=== PATIENT | female | born 1965 | race Caucasian/White ===

== ENCOUNTER 2019-11-23 12:25 | Outpatient (CLI) | payer BC, SELFPAY ==
--- NOTE | ~2019-11-23 | XR_ITS ---
EXAMINATION: XR lumbar spine 2-3V DATE: 11/23/2019 12:56 INDICATION: Low back pain TECHNIQUE: Anteroposterior and lateral views of the lumbar spine, and cone-down lateral view of the l umbosacral junction were obtained. COMPARISON: 07/03/2011 FINDINGS: The vertebral body heights and alignment are normal. There is moderate loss of intervertebr al disc space height at L5-S1. No fracture is identified. Small degenerative osteophytes project from the anterior endplates of multiple vertebral bodies. There is mild facet osteoarthritis at L5-S1. IMPRESSION: 1. Moderate lumbar spondylosis at L5-S1 without acute findings. Reviewed, dictated and finalized at location A. 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
== END 2019-11-23 12:26 | disposition home or self-care (01) ==
LOC: CHSIMG 12:27
PROVIDERS: PCP Internal Medicine; Visit Provider Nurse Practitioner Family
DX: M54.5 Low back pain (principal)
CPT/HCPCS: 72100

== ENCOUNTER 2020-09-04 07:43 | Outpatient (CLI) | payer BC, SELFPAY ==
[2020-09-04 09:01] LABS: Alanine Aminotransferase 66 U/L (14-59); Albumin Level 4.1 g/dL (3.4-5.0); Alkaline Phosphatase 114 U/L (46-116); Anion Gap 8 mmol/L (8-16); Aspartate Amino Transferase 34 U/L (15-37); Bilirubin,Total 0.4 mg/dL (0.00-1.00); Blood Urea Nitrogen 18 mg/dL (7-18); Calcium 9.3 mg/dL (8.5-10.1); Carbon Dioxide 31 mmol/L (21-32); Chloride 103 mmol/L (98-108); Cholesterol 184 mg/dL (0-200); Creatine Kinase 61 U/L (26-192); Estimated Glomerular Filt Rate > 60; Glucose 110 mg/dL (70-99); HDL Direct 56 mg/dL (40-60); LDL Cholesterol Calculated 107 mg/dL (<130); Osmolality Calculated 296 mOsm/kg (285-295); Potassium 4.5 mmol/L (3.5-5.1); Sodium 142 mmol/L (136-145); Total Protein 7.3 g/dL (6.4-8.2); Triglycerides 107 mg/dL (0-150)
== END 2020-09-04 07:44 | disposition home or self-care (01) ==
LOC: CHSLAB 07:46
PROVIDERS: PCP Internal Medicine; Visit Provider Internal Medicine
DX: Z00.00 Encounter for general adult medical examination without abnormal findings (principal)
CPT/HCPCS: 36415; 80053; 80061; 82550

== ENCOUNTER 2021-03-13 08:43 | Outpatient (CLI) | payer BC, SELFPAY ==
[2021-03-13 09:40] LABS: Hemoglobin A1C 5.7 % (<5.7)
[2021-03-13 09:52] LABS: Alanine Aminotransferase 44 U/L (14-59); Albumin Level 3.9 g/dL (3.4-5.0); Alkaline Phosphatase 116 U/L (46-116); Anion Gap 9 mmol/L (8-16); Aspartate Amino Transferase 25 U/L (15-37); Bilirubin,Total 0.4 mg/dL (0.00-1.00); Blood Urea Nitrogen 16 mg/dL (7-18); Carbon Dioxide 28 mmol/L (21-32); Chloride 104 mmol/L (98-108); Estimated Glomerular Filt Rate > 60; Glucose 103 mg/dL (70-99); Osmolality Calculated 293 mOsm/kg (285-295); Potassium 4.4 mmol/L (3.5-5.1); Sodium 141 mmol/L (136-145); Total Protein 6.9 g/dL (6.4-8.2)
== END 2021-03-13 08:44 | disposition home or self-care (01) ==
LOC: CHSLAB 08:44
PROVIDERS: PCP Internal Medicine; Visit Provider Internal Medicine
DX: R73.01 Impaired fasting glucose (principal)
CPT/HCPCS: 36415; 80053; 83036

== ENCOUNTER 2021-03-13 17:20 | Outpatient (CLI) | payer BC, SELFPAY ==
--- NOTE | ~2021-03-13 | XR_ITS ---
XR foot LT min 3V DATE: 03/13/2021 17:43 INDICATION: Heel pain for 2 months TECHNIQUE: 4 views COMPARISON: None FINDINGS: Mild distal Achilles tendon calcification. Slight plantar calcaneal enthesopathy. No fracture, dislocation, periosteal reaction or bone destruction. No erosive changes are noted. IMPRESSION: Mild distal Achilles tendon calcification Slight plantar calcaneal enthesopathy. Reviewed, dictated and finalized at location A.
== END 2021-03-13 17:21 | disposition home or self-care (01) ==
LOC: CHSIMG 17:22
PROVIDERS: PCP Internal Medicine; Visit Provider Internal Medicine
DX: M79.672 Pain in left foot (principal)
CPT/HCPCS: 73630

== ENCOUNTER 2021-10-19 08:04 | Outpatient (CLI) | payer BC, SELFPAY ==
[2021-10-19 08:59] LABS: Alanine Aminotransferase 43 U/L (14-59); Albumin Level 3.9 g/dL (3.4-5.0); Alkaline Phosphatase 117 U/L (46-116); Anion Gap 10 mmol/L (8-16); Aspartate Amino Transferase 18 U/L (15-37); Bilirubin,Total 0.4 mg/dL (0.00-1.00); Blood Urea Nitrogen 20 mg/dL (7-18); Calcium 9.2 mg/dL (8.5-10.1); Carbon Dioxide 28 mmol/L (21-32); Chloride 103 mmol/L (98-108); Cholesterol 185 mg/dL (0-200); Creatine Kinase 44 U/L (26-192); Estimated Glomerular Filt Rate > 60; Glucose 108 mg/dL (70-99); HDL Direct 59 mg/dL (40-60); LDL Cholesterol Calculated 105 mg/dL (<130); Osmolality Calculated 295 mOsm/kg (285-295); Potassium 4.5 mmol/L (3.5-5.1); Sodium 141 mmol/L (136-145); Total Protein 7.1 g/dL (6.4-8.2); Triglycerides 104 mg/dL (0-150)
== END 2021-10-19 08:05 | disposition home or self-care (01) ==
LOC: CHSLAB 08:05
PROVIDERS: PCP Internal Medicine; Visit Provider Internal Medicine
DX: Z00.00 Encounter for general adult medical examination without abnormal findings (principal); E78.2 Mixed hyperlipidemia
CPT/HCPCS: 36415; 80053; 80061; 82550

== ENCOUNTER 2022-02-27 15:28 | Outpatient (CLI) | payer BC, SELFPAY ==
--- NOTE | ~2022-02-27 | XR_ITS ---
XR chest 2V 02/27/2022 15:55 Indication: Shortness of breath with cough. History of Covid. Procedure: 2 view chest Comparison: Comparison to multiple prior studies sequentially, with oldest reviewed study dated 05/05/2015. Findings: There are surgical changes at the right lung apex. There is right upper lobe scarring. Hear t size normal. No focal air space disease, pulmonary edema, pleural effusion or suspected pneumothora x. No acute osseous abnormality. Impression: 1: No acute cardiopulmonary disease. Reviewed, dictated and finalized at location B. Impression: 1: No acute cardiopulmonary disease.
[2022-02-27 15:58] LABS: Basophils Absolute Auto 0.05 K/mm3 (0.00-0.10); Basophils Percent Auto 0.7 % (0.0-1.0); Eosinophils Absolute Auto 0.04 K/mm3 (0.02-0.50); Eosinophils Percent Auto 0.6 % (1.0-6.0); Hemoglobin 14.3 g/dL (12.0-15.0); Immature Granulocyte Absolute 0.02 K/mm3 (0.00-0.00); Immature Granulocyte Percent A 0.3 % (0.0-0.0); Lymphocytes Percent Auto 35.8 % (18.0-42.0); Mean Corpuscular HGB Conc 33.3 g/dL (32.0-36.0); Mean Corpuscular Hemoglobin 29.4 pg (27.0-31.0); Mean Corpuscular Volume 88.3 fL (78.0-102.0); Mean Platelet Volume 9.9 fl (9.2-11.8); Monocytes Absolute Auto 0.37 K/mm3 (0.10-0.90); Monocytes Percent Auto 5.3 % (2.0-11.0); Neutrophils Percent Auto 57.3 % (50.0-70.0); Platelet Count Result 261 K/mm3 (150-420); Red Blood Count 4.87 M/mm3 (4.20-5.40); Red Cell Distribution Width 11.9 % (11.6-14.4)
[2022-02-27 16:28] LABS: D Dimer 0.28 mg/L (0.19-0.50)
== END 2022-02-27 15:29 | disposition home or self-care (01) ==
LOC: CHSLAB 15:37
PROVIDERS: PCP Internal Medicine; Visit Provider Internal Medicine
DX: R06.02 Shortness of breath (principal); Z86.16 Personal history of COVID-19
CPT/HCPCS: 36415; 71046; 85025; 85380

== ENCOUNTER 2023-02-06 12:30 | Outpatient (CLI) | payer BC, SELFPAY ==
--- NOTE | 2023-02-09 10:49 | WPDNEUROLOGY ---
Neurology EEG Report General Information Date of Study: 03/08/23 TEST eeg DIAGNOSIS Confusion with memory loss CONDITION OF RECORDING drowsy and sleep EEG NUMBER [id number] CLINICAL HISTORY patient reports about 2 weeks ago she had an episode of amnesia. said she was talking and walking fine but cannot remember anything that happened for about 10 minutes. EEG DESCRIPTION Low-voltage 15 to 18 hertz per 2nd beta activity seen diffusely admixed with waxing and waning posterior alpha rhythm. Bilateral symmetrical sleep activity seen is mixture of beta theta activity without any evidence of paroxysmal discharge or asymmetry. Photic stimulation produced normal drive. Hyperventilation not done. Non paroxysmal. Nonfocal. Nonlateralizing. IMPRESSION Normal record during drowsiness and sleep without evidence of asymmetry or paroxysmal discharge.
== END 2023-02-06 12:31 | disposition home or self-care (01) ==
LOC: ANHNEURO 12:31
PROVIDERS: PCP Internal Medicine; Visit Provider Internal Medicine
DX: R41.0 Disorientation, unspecified (principal); R41.3 Other amnesia
CPT/HCPCS: 95816

== ENCOUNTER 2023-02-12 22:25 | Emergency (ER) | payer BC, SELFPAY ==
[2023-02-12 22:26] VITALS: BP 134/94; PULSE 85; RESP 16; TEMP 36.8; O2SAT 97
--- NOTE | 2023-02-12 22:39 | ED.GENADULT ---
HPI - General Adult General Chief complaint: Unspecified Stated complaint: Rash Source: patient and family Mode of arrival: ambulatory Limitations: no limitations History of Present Illness HPI narrative: this is a 57-year-old female that presents with a urticarial rash located on her face with no involvement of her eye currently no drainage there is no wheezing no nausea or vomiting no abdominal pain, occurred after she was cutting grass earlier today. Onset (ago): hour(s) Severity: mild Related Data Home Medications Medication Instructions Recorded Confirmed pravastatin 20 mg tablet 20 mg PO DAILY 02/12/23 02/12/23 Allergies Allergy/AdvReac Type Severity Reaction Status Date / Time No Known Allergies Allergy Unverified 02/12/23 22:33 Review of Systems Review of Systems: All systems reviewed & are unremarkable except as noted in HPI and below PMFSH Past Medical History Medical History Patient denies medical problems Exam Const: General: cooperative, healthy appearing and comfortable HENMT: Head: normal to inspection Ears: hearing grossly normal bilaterally Face/Nose/Sinus: Normal external nose present Face images: 1. urticarial lesion 2. urticarial lesion Mouth: Yes Normal oral and palatal mucosa present Throat: posterior oropharynx normal Eyes: General: appearance normal, both eyes and all related structures Visual Bettencourt: normal visual bettencourt by confrontation Neck: Neck: normal visual inspection, full ROM and no lymphadenopathy Chest: Chest palpation & inspection: normal inspection of the chest Resp: Effort & Inspection: normal respiratory effort Auscultation: clear to auscultation bilaterally Cardio: Jugular venous distension: no JVD Palpation: normal PMI Rate: regular rate Rhythm: regular rhythm GI: Inspection: normal to inspection Auscultation: normal bowel sounds Urinary Catheter: Urinary Catheter: patent and draining Skin: Rashes: rashes noted Course Course Emergency Course: patient received a dose of IM Depo-Medrol. Vital Signs Vital signs: Vital Signs Temperature 36.8 C 02/12/23 22:26 Pulse Rate 85 02/12/23 22:26 Respiratory Rate 16 02/12/23 22:26 Blood Pressure 134/94 H 02/12/23 22:26 Pulse Oximetry 97 02/12/23 22:26 Oxygen Delivery Room Air 02/12/23 22:26 Temperature 36.8 C 02/12/23 22:26 Pulse Rate 85 02/12/23 22:26 Respiratory Rate 16 02/12/23 22:26 Blood Pressure 134/94 H 02/12/23 22:26 Pulse Oximetry 97 02/12/23 22:26 Oxygen Delivery Room Air 02/12/23 22:26 Medical Decision Making Vital Signs Vital Signs: Vital Signs Temperature 36.8 C 02/12/23 22:26 Pulse Rate 85 02/12/23 22:26 Respiratory Rate 16 02/12/23 22:26 Blood Pressure 134/94 H 02/12/23 22:26 Pulse Oximetry 97 02/12/23 22:26 Oxygen Delivery Room Air 02/12/23 22:26 Temperature 36.8 C 02/12/23 22:26 Pulse Rate 85 02/12/23 22:26 Respiratory Rate 16 02/12/23 22:26 Blood Pressure 134/94 H 02/12/23 22:26 Pulse Oximetry 97 02/12/23 22:26 Oxygen Delivery Room Air 02/12/23 22:26 Critical Care Time Critical Care Time Critical Care Time: No Discharge Plan Discharge Clinical Impression: Contact dermatitis Patient Disposition: Home, Self-Care Condition: Stable Instructions: Antibiotic Form, Contact Dermatitis (ED) Additional Instructions: take medicine as prescribed and follow-up with primary care physician if symptoms persist or worsen. Prescriptions: New prednisone 20 mg tablet 20 mg PO DAILY Qty: 5 0RF No Action pravastatin 20 mg tablet 20 mg PO DAILY Follow-up/Referrals: Luis Angel Giron MD [Primary Care Provider] - Time of Disposition: 22:44
[2023-02-12] MEDS: methylPREDNISolone ACETATE 40 MG/ML VIAL 80 MG IM (22:44)
== END 2023-02-12 23:00 | disposition home or self-care (01) ==
LOC: CHSED 22:49
PROVIDERS: Emergency Provider Emergency Medicine; PCP Internal Medicine
DX: L25.9 Unspecified contact dermatitis, unspecified cause (principal)
CPT/HCPCS: 96372; 99283; J1030

== ENCOUNTER 2023-04-15 17:03 | Outpatient (CLI) | payer BC, SELFPAY ==
[2023-04-15 17:18] LABS: Basophils Absolute Auto 0.07 K/mm3 (0.00-0.10); Basophils Percent Auto 1.1 % (0.0-1.0); Eosinophils Absolute Auto 0.06 K/mm3 (0.02-0.50); Eosinophils Percent Auto 0.9 % (1.0-6.0); Hematocrit 41.9 % (35.0-49.0); Hemoglobin 14.1 g/dL (12.0-15.0); Immature Granulocyte Absolute 0.02 K/mm3 (0.00-0.00); Immature Granulocyte Percent A 0.3 % (0.0-0.0); Lymphocytes Absolute Auto 2.46 K/mm3 (1.10-4.50); Mean Corpuscular HGB Conc 33.7 g/dL (32.0-36.0); Mean Corpuscular Hemoglobin 30.5 pg (27.0-31.0); Mean Corpuscular Volume 90.7 fL (78.0-102.0); Mean Platelet Volume 9.8 fl (9.2-11.8); Monocytes Absolute Auto 0.51 K/mm3 (0.10-0.90); Monocytes Percent Auto 7.7 % (2.0-11.0); Neutrophils Absolute Auto 3.5 K/mm3 (1.7-7.2); Platelet Count Result 237 K/mm3 (150-420); Red Blood Count 4.62 M/mm3 (4.20-5.40); Red Cell Distribution Width 12.4 % (11.6-14.4); White Blood Count 6.7 K/mm3 (4.8-10.8)
[2023-04-15 17:50] LABS: Alanine Aminotransferase 46 U/L (14-59); Albumin Level 4.1 g/dL (3.4-5.0); Alkaline Phosphatase 97 U/L (46-116); Anion Gap 8 mmol/L (8-16); Aspartate Amino Transferase 39 U/L (15-37); Bilirubin,Total 0.4 mg/dL (0.00-1.00); Blood Urea Nitrogen 22 mg/dL (7-18); Calcium 9.2 mg/dL (8.5-10.1); Carbon Dioxide 31 mmol/L (21-32); Chloride 102 mmol/L (98-108); Creatine Kinase 66 U/L (26-192); Estimated Glomerular Filt Rate > 60; Glucose 88 mg/dL (70-99); Osmolality Calculated 294 mOsm/kg (285-295); Potassium 4.6 mmol/L (3.5-5.1); Sodium 141 mmol/L (136-145); Total Protein 7.2 g/dL (6.4-8.2)
== END 2023-04-15 17:04 | disposition home or self-care (01) ==
LOC: CHSLAB 17:07
PROVIDERS: PCP Internal Medicine; Visit Provider Internal Medicine
DX: R55 Syncope and collapse (principal)
CPT/HCPCS: 36415; 80053; 82550; 85025

== ENCOUNTER 2023-04-22 18:26 | Outpatient (CLI) | payer BC, SELFPAY ==
[2023-04-22 19:33] LABS: Alanine Aminotransferase 38 U/L (14-59); Albumin Level 4.1 g/dL (3.4-5.0); Alkaline Phosphatase 99 U/L (46-116); Anion Gap 8 mmol/L (8-16); Aspartate Amino Transferase 18 U/L (15-37); Bilirubin,Total 0.3 mg/dL (0.00-1.00); Blood Urea Nitrogen 31 mg/dL (7-18); Calcium 9.2 mg/dL (8.5-10.1); Carbon Dioxide 31 mmol/L (21-32); Chloride 102 mmol/L (98-108); Estimated Glomerular Filt Rate 56; Glucose 92 mg/dL (70-99); Osmolality Calculated 298 mOsm/kg (285-295); Potassium 4.2 mmol/L (3.5-5.1); Sodium 141 mmol/L (136-145)
== END 2023-04-22 18:27 | disposition home or self-care (01) ==
LOC: CHSLAB 18:28
PROVIDERS: PCP Internal Medicine; Visit Provider Internal Medicine
DX: E86.0 Dehydration (principal)
CPT/HCPCS: 36415; 80053

== ENCOUNTER 2023-05-07 17:46 | Outpatient (CLI) | payer BC, SELFPAY ==
[2023-05-07 18:59] LABS: Anion Gap 8 mmol/L (8-16); Blood Urea Nitrogen 21 mg/dL (7-18); Carbon Dioxide 30 mmol/L (21-32); Chloride 101 mmol/L (98-108); Estimated Glomerular Filt Rate > 60; Glucose 82 mg/dL (70-99); Osmolality Calculated 290 mOsm/kg (285-295); Potassium 4.3 mmol/L (3.5-5.1); Sodium 139 mmol/L (136-145)
== END 2023-05-07 17:47 | disposition home or self-care (01) ==
LOC: CHSLAB 17:48
PROVIDERS: PCP Internal Medicine; Visit Provider Internal Medicine
DX: E56.0 Deficiency of vitamin E (principal)
CPT/HCPCS: 36415; 80048

== ENCOUNTER 2023-07-18 08:49 | Outpatient (CLI) | payer BC, SELFPAY ==
[2023-07-18 09:45] LABS: Alanine Aminotransferase 55 U/L (14-59); Albumin Level 3.7 g/dL (3.4-5.0); Alkaline Phosphatase 118 U/L (46-116); Anion Gap 7 mmol/L (8-16); Aspartate Amino Transferase 22 U/L (15-37); Bilirubin,Total 0.4 mg/dL (0.00-1.00); Blood Urea Nitrogen 20 mg/dL (7-18); Carbon Dioxide 29 mmol/L (21-32); Chloride 105 mmol/L (98-108); Cholesterol 174 mg/dL (0-200); Creatine Kinase 45 U/L (26-192); Estimated Glomerular Filt Rate > 60; Glucose 108 mg/dL (70-99); HDL Direct 53 mg/dL (40-60); LDL Cholesterol Calculated 101 mg/dL (<130); Osmolality Calculated 295 mOsm/kg (285-295); Potassium 4.4 mmol/L (3.5-5.1); Sodium 141 mmol/L (136-145); Total Protein 7.2 g/dL (6.4-8.2); Triglycerides 98 mg/dL (0-150)
[2023-07-18 09:58] LABS: Appearance Urine Clear (Clear); Bilirubin Urine Negative (Negative); Blood Urine Negative (Negative); Color Urine Light Yellow (Yellow); Glucose Urine UA Negative (Negative); Ketones Urine Negative (Negative); Leukocyte Esterase Ur Negative (Negative); Nitrate Urine Negative (Negative); Protein Urine Negative (Negative); Urobilinogen Urine 0.2 mg/dL (0.2-1.0); pH Urine 6.5 (5.0-8.0)
[2023-07-18 10:05] LABS: Add Urine Microscopic? NO
[2023-07-18 10:12] LABS: Hemoglobin A1C 5.6 % (<5.7)
== END 2023-07-18 08:50 | disposition home or self-care (01) ==
LOC: CHSLAB 08:51
PROVIDERS: PCP Internal Medicine; Visit Provider Internal Medicine
DX: R73.01 Impaired fasting glucose (principal); E78.2 Mixed hyperlipidemia
CPT/HCPCS: 36415; 80053; 80061; 81003; 82550; 83036

== ENCOUNTER 2023-10-05 22:23 | Observation (INO) | payer BC, SELFPAY ==
--- NOTE | ~2023-10-05 | CT_ITS ---
EXAMINATION: CT brain wo con DATE: 10/06/2023 00:29 INDICATION: Headache. TECHNIQUE: Computed tomography (CT) of the head was performed without intravenous contrast. The mA wa s adjusted according to patient size. Iterative reconstruction technique was employed. The dose-lengt h product was 605.33 mGy-cm. COMPARISON: None FINDINGS: There is no intracranial hemorrhage, acute infarction, or abnormal intracranial mass lesion . The ventricles are normal in size. The orbits are normal. There is mild mucosal thickening in the p aranasal sinuses. The mastoid air cells are normal. IMPRESSION: 1. Normal brain. Reviewed, dictated and finalized at location E. CHECKER IMPRESSION: 1. Normal brain.
--- NOTE | ~2023-10-05 | XR_ITS ---
EXAMINATION: XR chest 1V portable DATE: 10/05/2023 22:43 INDICATION: Cough. Fever. TECHNIQUE: A single frontal view of the chest was obtained. COMPARISON: Chest 2 views 02/27/2022, chest CT 07/07/2011 FINDINGS: Staple lines overlie right lung. There is mild scarring in right mid and upper lung zones. No pleural effusion or pneumothorax. The heart size is normal. IMPRESSION: 1. Mild scarring in right mid and upper lung zones. Reviewed, dictated and finalized at location E. 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
[2023-10-05 22:27] VITALS: BP 140/94; PULSE 124; RESP 20; TEMP 38.8; O2SAT 94
--- NOTE | 2023-10-05 22:31 | ED.GENADULT ---
HPI - General Adult General Chief complaint: Upper Respiratory Infection Stated complaint: fever, sore throat Time Seen by Provider: 10/05/23 22:29 History of Present Illness HPI narrative: Sally is a 58F with a PMH of HLD that presented to the ED feeling ill. This morning she started feeling very tired and then progressed to have fevers, chills and body aches. It progressed to a severe headache with congestioin and cough as well as some nausea. No neck pain, dysuria or chest pain reported. Related Data Home Medications Medication Instructions Recorded Confirmed pravastatin 20 mg tablet 20 mg PO DAILY 02/12/23 10/06/23 alendronate 70 mg tablet 70 mg PO WEEKLY 10/06/23 10/06/23 Allergies Allergy/AdvReac Type Severity Reaction Status Date / Time No Known Allergies Allergy Unverified 10/05/23 22:26 Review of Systems Review of Systems: All systems reviewed & are unremarkable except as noted in HPI and below PMFSH Past Medical History Medical History Patient denies medical problems Social History Social History Smoking status: Never smoker Second hand tobacco smoke exposure: Yes Alcohol intake: never Substance use: never Substance use type: does not use Do You Feel Safe in your Home?: Yes Lack of Transportation: No Lack of Food: Never True Current Housing: I Have Housing Concerned About Future Housing: No Difficulty Paying Gas/Electric Bills: No Difficulty Paying for Meds: No Currently Unemployed: No Education: Associate Degree Difficulty w/ Childcare or Family Care: No Spiritual care concerns: No Exam Const: General: cooperative, well developed, alert, awake and Physically active Orientation/consciousness: oriented to person, oriented to place and oriented to time HENMT: Head: normal to inspection, normocephalic and atraumatic Ears: hearing grossly normal bilaterally and external ears normal Face/Nose/Sinus: Normal external nose present Other: rhinorrhea present Eyes: General: appearance normal, both eyes and all related structures Periorbital: periorbital findings normal Sclera: sclerae normal Pupils: Equal, round and reactive pupils present Neck: Neck: normal visual inspection Chest: Chest palpation & inspection: normal inspection of the chest Resp: Effort & Inspection: able to speak in complete sentences, labored and tachypneic (mild tachypnea ) Auscultation: clear to auscultation bilaterally Cardio: Jugular venous distension: no JVD Rate: regular rate and tachycardic Rhythm: regular rhythm GI: Inspection: normal to inspection GI Palp: Yes Soft to palpation Auscultation: normal bowel sounds Skin: General skin exam: normal color and no rashes or lesions noted Neuro: General: oriented to person, oriented to place and oriented to time Cranial nerves: Yes Equal, round and reactive pupils present Extrem: General: normal to inspection Course Course Emergency Course: Ordered labs, IV fluids, CXR, viral testing, EKG and Toradol. VBG and vitals c/w respiratory alkalosis. WBC elevated at 13.2, Chemistries show a mild ARGELIA with a Cr. of 1.17 (baseline 0.88), and CRP of 2.0 EKG showed sinus tachycardia with a rate of 105, normal axis and no ST elevation or depression UA was largely unremarkable CT Brain: CT head showed no acute intracranial hemorrhage, no midline shift or mass effect. the territorial perry-white matter differentiation is maintained throughout. Th ventricles and sulci are commensurate with age Viral testing negative. Vitals and labs concerning for SIRS but no known source. Will do broad treatment with meropenem and vancomycin. Larry contacted for transfer at [facility] for SIRS of unknown origin Spoke with Dr. Sorto that believed the the patient could be admitted to observation here. As vitals had improved she was admit
[2023-10-05] MEDS: KETOROLAC 30 MG/ML VIAL (*BKC) IV PUSH (22:44)
[2023-10-05] MEDS: SODIUM CHLORIDE 0.9% IV 1,000 ML 999 ML IV CONT (22:47)
[2023-10-05 22:57] LABS: HCO3 VBG 22.9 mEq/l (24.0-30.0); PO2 VBG 48.3 mmHg (35.0-45.0); pH VBG 7.51 (7.33-7.43)
[2023-10-05 23:00] LABS: Basophils Absolute Auto 0.05 K/mm3 (0.00-0.10); Basophils Percent Auto 0.4 % (0.0-1.0); Eosinophils Absolute Auto 0.02 K/mm3 (0.02-0.50); Eosinophils Percent Auto 0.2 % (1.0-6.0); Hematocrit 42.1 % (35.0-49.0); Hemoglobin 14.1 g/dL (12.0-15.0); Immature Granulocyte Absolute 0.04 K/mm3 (0.00-0.00); Immature Granulocyte Percent A 0.3 % (0.0-0.0); Lymphocytes Absolute Auto 1.09 K/mm3 (1.10-4.50); Lymphocytes Percent Auto 8.2 % (18.0-42.0); Mean Corpuscular HGB Conc 33.5 g/dL (32.0-36.0); Mean Corpuscular Hemoglobin 30.1 pg (27.0-31.0); Mean Platelet Volume 9.8 fl (9.2-11.8); Monocytes Absolute Auto 0.58 K/mm3 (0.10-0.90); Monocytes Percent Auto 4.4 % (2.0-11.0); Neutrophils Absolute Auto 11.4 K/mm3 (1.7-7.2); Neutrophils Percent Auto 86.5 % (50.0-70.0); Platelet Count Result 211 K/mm3 (150-420); Red Blood Count 4.68 M/mm3 (4.20-5.40); Red Cell Distribution Width 12.6 % (11.6-14.4); White Blood Count 13.2 K/mm3 (4.8-10.8)
[2023-10-05 23:03] LABS: PCO2 VBG 29.1 mmHg (42.0-48.0)
[2023-10-05 23:04] LABS: Device ROOM AIR
--- NOTE | 2023-10-05 23:15 | ECG_ITS ---
Measurements Intervals [place] Rate: 105 P: 35 [place]: 152 QRS: 1 QRSD: 98 T: 16 QT: 342 QTc: 452 Interpretive Statements SINUS TACHYCARDIA NO PREVIOUS ECG AVAILABLE FOR COMPARISON Electronically Signed On 10-06-2023 15:51:26 CLASSIFICATIONS OFFICER CC/CM by Kelsey Wing M.D.
[2023-10-05 23:20] LABS: Lactic Acid Reflex 1.8 mmol/L (0.4-2.0)
[2023-10-05 23:27] LABS: Alanine Aminotransferase 46 U/L (14-59); Alkaline Phosphatase 98 U/L (46-116); Anion Gap 9 mmol/L (8-16); Aspartate Amino Transferase 35 U/L (15-37); Bilirubin,Total 0.7 mg/dL (0.00-1.00); Blood Urea Nitrogen 22 mg/dL (7-18); Calcium 9.7 mg/dL (8.5-10.1); Carbon Dioxide 27 mmol/L (21-32); Chloride 99 mmol/L (98-108); Estimated Glomerular Filt Rate 48; Glucose 144 mg/dL (70-99); Osmolality Calculated 286 mOsm/kg (285-295); Potassium 3.9 mmol/L (3.5-5.1); Sodium 135 mmol/L (136-145); Total Protein 7.3 g/dL (6.4-8.2)
[2023-10-05 23:32] VITALS: PULSE 102
[2023-10-05 23:33] VITALS: BP 113/76; PULSE 102; PULSE 103; RESP 18; O2SAT 93; O2SAT 96
[2023-10-05 23:44] LABS: Appearance Urine Clear (Clear); Bilirubin Urine Negative (Negative); Blood Urine Trace-Intact (Negative); Color Urine Light Yellow (Yellow); Glucose Urine UA Negative (Negative); Ketones Urine Negative (Negative); Leukocyte Esterase Ur Negative LEU/UL (Negative); Nitrate Urine Negative (Negative); Protein Urine Negative (Negative); Specific Grav Ur <= 1.005 (1.010-1.020); Urobilinogen Urine 0.2 mg/dL (0.2-1.0); pH Urine 5.5 (5.0-8.0)
[2023-10-05 23:45] VITALS: PULSE 100; RESP 21; O2SAT 93
[2023-10-05 23:46] LABS: Influenza A QL RT-PCR Negative (Negative); Influenza B QL RT-PCR Negative (Negative); RSV RNA, RT-PCR Negative (Negative); SARS-CoV-2 RNA PCR Negative (Negative); Strep Group A RT-PCR NOT DETECTED (Negative)
[2023-10-05 23:49] LABS: Add Urine Microscopic? YES; Bacteria Urine None seen /hpf; RBC Urine 0-2 /hpf (0-2); Squamous Epithelial Cell Urine None seen /hpf (Few); WBC Urine 0-3 /hpf (0-3)
[2023-10-05] MEDS: MEROPENEM 1 GM/NS 100 ML 1 GM/100 ML BAG IVPB (23:57)
[2023-10-06] VITALS (21 sets, daily range): BP systolic 110–134; BP diastolic 67–79; PULSE 75–122; RESP 14–22; TEMP 36.8–38.2; O2SAT 93–96; BMI 30.4
[2023-10-06] MEDS: VANCOMYCIN 1,000 MG/NS 250 ML BAG 250 MG IVPB ×2 (00:50→01:53)
[2023-10-06] MEDS: SODIUM CHLORIDE 0.9% IV 1,000 ML 100 ML IV CONT ×2 (01:13→21:05)
[2023-10-06] MEDS: HYDROcodone/acetaminophen (*CRX) 5-325 MG TABLET 1 TAB PO ×2 (02:20→08:13)
--- NOTE | 2023-10-06 03:41 | ADMGEN ---
This patient, Sally Michaels, was admitted to 2nd Floor Room 210-2. Patient/family oriented to hospital policies and general routines including ID bracelet, bed and alarms, pain management, procedures, bathroom and other care routines, personal items, smoking policy, room service/diet, and visiting hours. Information on how to activate the Rapid Response Team has been discussed. Patient/Family are encouraged to report perceived risks to care and to ask questions if they do not understand what they are told or what they should do.
[2023-10-06] MEDS: ACETAMINOPHEN 325 MG TABLET 650 MG PO ×2 (04:22→18:32)
[2023-10-06 05:33] LABS: Basophils Absolute Auto 0.01 K/mm3 (0.00-0.10); Basophils Percent Auto 0.1 % (0.0-1.0); Eosinophils Absolute Auto 0.01 K/mm3 (0.02-0.50); Eosinophils Percent Auto 0.1 % (1.0-6.0); Hematocrit 37.3 % (35.0-49.0); Hemoglobin 12.4 g/dL (12.0-15.0); Immature Granulocyte Absolute 0.03 K/mm3 (0.00-0.00); Immature Granulocyte Percent A 0.3 % (0.0-0.0); Lymphocytes Absolute Auto 1.11 K/mm3 (1.10-4.50); Lymphocytes Percent Auto 10.4 % (18.0-42.0); Mean Corpuscular HGB Conc 33.2 g/dL (32.0-36.0); Mean Corpuscular Hemoglobin 29.5 pg (27.0-31.0); Mean Corpuscular Volume 88.6 fL (78.0-102.0); Mean Platelet Volume 9.5 fl (9.2-11.8); Monocytes Absolute Auto 0.28 K/mm3 (0.10-0.90); Monocytes Percent Auto 2.6 % (2.0-11.0); Neutrophils Absolute Auto 9.2 K/mm3 (1.7-7.2); Neutrophils Percent Auto 86.5 % (50.0-70.0); Platelet Count Result 173 K/mm3 (150-420); Red Blood Count 4.21 M/mm3 (4.20-5.40); Red Cell Distribution Width 12.6 % (11.6-14.4); White Blood Count 10.6 K/mm3 (4.8-10.8)
[2023-10-06 06:00] LABS: Anion Gap 7 mmol/L (8-16); Blood Urea Nitrogen 16 mg/dL (7-18); Calcium 8.6 mg/dL (8.5-10.1); Carbon Dioxide 29 mmol/L (21-32); Chloride 104 mmol/L (98-108); Estimated CRCL calculation 56 ml/min; Estimated Glomerular Filt Rate > 60; Glucose 129 mg/dL (70-99); Osmolality Calculated 293 mOsm/kg (285-295); Potassium 3.5 mmol/L (3.5-5.1); Sodium 140 mmol/L (136-145)
--- NOTE | 2023-10-06 07:16 | PC.NURSE ---
Patient was admitted to the floor shortly after 0200. She was accompanied by her live-in boyfriend. Patient had a fever of 102 when she came to the ED. By the time she arrived to this floor, patient had been given meriperem, vancomyacin, and 2 L of normal saline. Her temperature was down to normal at arrival. Patient's HR had been elevated when she arrived to the ED, but again, was down to normal limits. Patient c/o a headache with pain of 7/10. However, she did not want to take morphine (pain meds for severe pain), but did want the [place]. That medication, given at 0222 did help relieve headache somewhat, but it remained. Patient's temperature went up somewhat to 100.3. She was given Tylenol to help combat the temp. That was given at 0430. Patient's temperature stayed about the same, at 100.1. Patient was able to sleep, and stated that the headache is better, but again is not gone. Patient is able to ambulate to the toilet and back, with stand by assist. Patient has the IV pole to manipulate. Patient urinated frequently (5 trips total).
[2023-10-06] MEDS: ENOXAPARIN 40 MG/0.4 ML SYRINGE SUB-Q (09:12)
[2023-10-06] MEDS: PRAVASTATIN SODIUM 20 MG TABLET PO (09:13)
[2023-10-06] MEDS: MEROPENEM 1 GM/NS 100 ML 1 GM/100 ML BAG IVPB ×2 (09:13→20:31)
--- NOTE | 2023-10-06 09:14 | PM.IMHP ---
H&P: HPI History of Present Illness Date/Time: 10/06/23 09:14 Chief Complaint: Fever of unknown origin Narrative: This is a previously healthy 58-year-old female patient who is admitted to the hospital for fever of unknown origin. She reports that when she woke up yesterday she had bit of a scratchy throat that progressed throughout the day to include symptoms of fatigue severe chills and fever 102. Patient came to the emergency department overnight due to progression of symptoms. She denies any difficulty breathing just complains of a headache around her ethmoid sinus. Patient had full workup in the emergency department without obvious findings of infection. ED provider was thinking that patient might have influenza that just did not show positive on test results. However, due to how the patient appeared and the repeated EF her symptoms he initiated vancomycin and meropenem. For now we will continue this treatment. Blood cultures are pending. Patient denies stiff neck or pain with flexion and extension of the neck. She is tired because she has been up for over 24 hours but she is not obtunded or altered level of consciousness. We will continue IV fluids and antibiotics. If patient condition worsens or she has altered mental status we would pursue transfer. ED provider initially spoke to hospitalist at [facility] for transfer which was declined as patient appears to be capable of being cared for at critical access hospital. At this time I agree with that assessment but would have low threshold for transfer if patient condition worsens despite treatment. Review of Systems Review of Systems: fever, chills, ethmoid sinus pain, facial erythema All systems reviewed & are unremarkable except as noted in HPI and below PMFSH Past Medical History Medical History Patient denies medical problems Social History Social History Smoking status: Never smoker Second hand tobacco smoke exposure: Yes Alcohol intake: never Substance use: never Substance use type: does not use Do You Feel Safe in your Home?: Yes Lack of Transportation: No Lack of Food: Never True Current Housing: I Have Housing Concerned About Future Housing: No Difficulty Paying Gas/Electric Bills: No Difficulty Paying for Meds: No Currently Unemployed: No Education: Associate Degree Difficulty w/ Childcare or Family Care: No Spiritual care concerns: No Meds Home Medications and Allergies Home Medications Medication Instructions Recorded Confirmed Type pravastatin 20 mg tablet 20 mg PO DAILY 02/12/23 10/06/23 History alendronate 70 mg tablet 70 mg PO WEEKLY 10/06/23 10/06/23 History Allergies Allergy/AdvReac Type Severity Reaction Status Date / Time No Known Allergies Allergy Unverified 10/05/23 22:26 Vital Signs Vital Signs - 24 hr 10/05/23 22:27 10/05/23 22:27 10/05/23 23:32 Temperature 38.8 C H Pulse Rate 124 H 102 H Respiratory Rate 20 Blood Pressure 140/94 H Pulse Oximetry 94 Oxygen Delivery Room Air Room Air 10/05/23 23:33 10/05/23 23:33 10/05/23 23:45 Temperature Pulse Rate 103 H 102 H 100 Respiratory Rate 18 21 H Blood Pressure 113/76 Pulse Oximetry 96 93 93 Oxygen Delivery 10/06/23 00:00 10/06/23 00:01 10/06/23 00:29 Temperature 37.7 C H Pulse Rate 122 H 119 H 94 Respiratory Rate 22 H 19 18 Blood Pressure 130/74 Pulse Oximetry 96 96 Oxygen Delivery 10/06/23 00:22 10/06/23 00:30 10/06/23 00:45 Temperature Pulse Rate 107 H 101 H 97 Respiratory Rate 16 16 Blood Pressure Pulse Oximetry 95 93 94 Oxygen Delivery 10/06/23 00:50 10/06/23 00:51 10/06/23 01:00 Temperature Pulse Rate 99 100 94 Respiratory Rate 19 19 19 Blood Pressure 122/73 110/67 Pulse Oximetry 95 94 96 Oxygen Delivery 10/06/23 01:01
[2023-10-06] MEDS: IBUPROFEN 400 MG TABLET PO ×2 (10:26→11:00)
[2023-10-06 19:34] LABS: MRSA (PCR) NOT DETECTED (NOT DETECTE)
[2023-10-06] MEDS: VANCOMYCIN 1,500 MG/NS 500 ML 1,500 MG/500 ML BAG 250 MG IVPB (21:56)
[2023-10-07] VITALS: BP 116/83; PULSE 82; RESP 16; TEMP 36.4; O2SAT 98
[2023-10-07] MEDS: ACETAMINOPHEN 325 MG TABLET 650 MG PO (02:10)
[2023-10-07 05:27] LABS: Basophils Absolute Auto 0.04 K/mm3 (0.00-0.10); Basophils Percent Auto 0.4 % (0.0-1.0); Eosinophils Absolute Auto 0.15 K/mm3 (0.02-0.50); Eosinophils Percent Auto 1.7 % (1.0-6.0); Hematocrit 38.5 % (35.0-49.0); Hemoglobin 12.6 g/dL (12.0-15.0); Immature Granulocyte Absolute 0.03 K/mm3 (0.00-0.00); Immature Granulocyte Percent A 0.3 % (0.0-0.0); Lymphocytes Absolute Auto 2.01 K/mm3 (1.10-4.50); Lymphocytes Percent Auto 22.2 % (18.0-42.0); Mean Corpuscular HGB Conc 32.7 g/dL (32.0-36.0); Mean Corpuscular Hemoglobin 29.2 pg (27.0-31.0); Mean Corpuscular Volume 89.3 fL (78.0-102.0); Mean Platelet Volume 9.8 fl (9.2-11.8); Monocytes Absolute Auto 0.62 K/mm3 (0.10-0.90); Monocytes Percent Auto 6.8 % (2.0-11.0); Neutrophils Absolute Auto 6.2 K/mm3 (1.7-7.2); Neutrophils Percent Auto 68.6 % (50.0-70.0); Platelet Count Result 177 K/mm3 (150-420); Red Blood Count 4.31 M/mm3 (4.20-5.40); Red Cell Distribution Width 12.7 % (11.6-14.4); White Blood Count 9.1 K/mm3 (4.8-10.8)
[2023-10-07 05:49] LABS: Alanine Aminotransferase 90 U/L (14-59); Albumin Level 3.3 g/dL (3.4-5.0); Alkaline Phosphatase 97 U/L (46-116); Anion Gap 7 mmol/L (8-16); Aspartate Amino Transferase 55 U/L (15-37); Bilirubin,Total 0.6 mg/dL (0.00-1.00); Blood Urea Nitrogen 7 mg/dL (7-18); Calcium 8.8 mg/dL (8.5-10.1); Carbon Dioxide 28 mmol/L (21-32); Chloride 104 mmol/L (98-108); Estimated CRCL calculation 63 ml/min; Estimated Glomerular Filt Rate > 60; Glucose 107 mg/dL (70-99); Magnesium 1.9 mg/dL (1.8-2.4); Osmolality Calculated 286 mOsm/kg (285-295); Potassium 3.8 mmol/L (3.5-5.1); Sodium 139 mmol/L (136-145); Total Protein 6.5 g/dL (6.4-8.2)
[2023-10-07 07:29] LABS: SARS-CoV-2 RNA PCR Negative (Negative)
[2023-10-07 07:33] LABS: Influenza A QL RT-PCR Negative (Negative); Influenza B QL RT-PCR Negative (Negative)
[2023-10-07 08:00] VITALS: BP 127/83; PULSE 85; RESP 16; TEMP 35.8; O2SAT 96
[2023-10-07] MEDS: MEROPENEM 1 GM/NS 100 ML 1 GM/100 ML BAG IVPB (08:59)
[2023-10-07] MEDS: PRAVASTATIN SODIUM 20 MG TABLET PO (08:59)
[2023-10-07] MEDS: ENOXAPARIN 40 MG/0.4 ML SYRINGE SUB-Q (08:59)
--- NOTE | 2023-10-07 09:05 | PM.DS ---
DS: Admitting Diagnosis Discharge Date 10/07/2023 Admitting Diagnosis fever of unknown origin, sirs, ARGELIA DS: Discharge Diagnosis Discharge Diagnosis (1) Fever of unknown origin: Code(s): R50.9 - Fever, unspecified Status: Acute (2) SIRS (systemic inflammatory response syndrome): Code(s): R65.10 - Systemic inflammatory response syndrome (SIRS) of non-infectious origin without acute organ dysfunction Status: Acute (3) ARGELIA (acute kidney injury): Code(s): N17.9 - Acute kidney failure, unspecified Status: Acute DS: Summary Hospital Course Reason for hospitalization: Fever of unknown origin Hospital Course: This is a 58-year-old female patient admitted to the hospital on IV antibiotics for fever of unknown origin meetings SIRS criteria. Urinalysis unremarkable, chest x-ray unremarkable, no skin source of infection identified. Symptoms appear to be possibly viral in nature consisting of sinusitis, fever, malaise, drowsiness without concerning signs suggestive of meningitis. Patient was receiving minimal improvement in body temperature with Tylenol so we switched to ibuprofen which did help break the fever. We repeated flu and COVID testing thinking it was possible patient had flu but a false negative test. Blood cultures are pending. Because source not clearly identified, we will treat with 7 days of Augment and return precautions. Discussed symptomatic care for sinusitis. Discussed return precautions. Status at Discharge Cognitive/behavioral status at discharge: awake alert oriented pleasant Functional status at discharge: independent ambulation Overall status at discharge: patient is progressing back to baseline Time Spent with Patient Time attestation: Total time spent providing and/or coordinating discharge services: 35 minutes Time spent: Greater than 30 minutes Exam Narrative: GENERAL: well-appearing, well-nourished, and in no acute distress. HEAD: Normocephalic, atraumatic. ENT:? Mucous membranes moist. mild pain palpation of the ethmoid sinus CHEST: Clear to auscultation.? No respiratory distress. HEART: Regular rate and rhythm. ? Normal peripheral pulses. ABDOMEN: Soft, nontender, nondistended. EXTREMITIES: Normal range of motion. No peripheral edema. SKIN: Warm dry normal color NEURO: Alert and oriented x3, full range of motion of all extremities, negative Kernig's and Brudzinski, ambulatory with steady gait PSYCH: Normal mood and affect DS: Data Data Completed and Pending Completed studies during hospitalization: chest x-ray, head CT Labs on day of discharge: Labs from last 24 hours 10/07/23 10/07/23 10/06/23 05:18 05:00 02:16 WBC 9.1 RBC 4.31 Hgb 12.6 Hct 38.5 MCV 89.3 MCH 29.2 MCHC 32.7 RDW 12.7 Plt Count 177 MPV 9.8 Immature Gran % (Auto) 0.3 H Neut % (Auto) 68.6 Lymph % (Auto) 22.2 [place] % (Auto) 6.8 Eos % (Auto) 1.7 Baso % (Auto) 0.4 Lymph # (Auto) 2.01 [place] # (Auto) 0.62 Eos # (Auto) 0.15 Baso # (Auto) 0.04 Abs Immat Gran (auto) 0.03 H Absolute Neuts (auto) 6.2 Absolute Nucleated RBC 0.00 Nucleated RBC % 0.0 Sodium 139 Potassium 3.8 Chloride 104 Carbon Dioxide 28 Anion Gap 7 L BUN 7 Creatinine 0.81 Estim Creat Clear Calc 63 Estimated GFR > 60 Glucose 107 H Calculated Osmolality 286 Calcium 8.8 Magnesium 1.9 Total Bilirubin 0.6 AST 55 H ALT 90 H Alkaline Phosphatase 97 Total Protein 6.5 Albumin 3.3 L Nasal MRSA (PCR) Not detected Influenza A (RT-PCR) Negative Influenza B (RT-PCR) Negative SARS-CoV-2 RNA (RT-PCR) Negative Discharge Plan Discharge Attending physician on discharge: Chetan Potter Consulting providers: Sven Saldivar Discharging Clinician: Sven Saldivar Anticipated Discharge Date/Time: 10/07/23 09:40 Patient Disposition: Home, Self-Care
--- NOTE | 2023-10-07 10:55 | PC.NURSE ---
Discharge instructions reviewed with patient and significant other. All questions answered. Pt escorted via wheelchair and assisted into private vehicle.
--- NOTE | 2023-10-08 09:17 | PC.NURSE ---
Discharge call back completed, doing ok, weak, no fever, did receive dc instructions and no questions or concerns, care was good, everyone was helpful and very nice
== END 2023-10-07 10:55 | disposition home or self-care (01) ==
LOC: CHSED 10-06 00:20 → CHS2ND 10-06 01:25
PROVIDERS: Nurse Practitioner; Admitting Provider Internal Medicine; Emergency Provider Family Medicine; Visit Provider Internal Medicine
DX: R50.9 Fever, unspecified (principal); R65.10 Systemic inflammatory response syndrome (SIRS) of non-infectious origin without acute organ dysfunction; N17.9 Acute kidney failure, unspecified; J98.4 Other disorders of lung; R51.9 Headache, unspecified; I10 Essential (primary) hypertension; Z20.822 Contact with and (suspected) exposure to COVID-19; E78.5 Hyperlipidemia, unspecified; Z79.899 Other long term (current) drug therapy
CPT/HCPCS: 36415; 70450; 71045; 80048; 80053; 81001; 82803; 83605; 83735; 85025; 86140; 87040; 87636; 87637; 87641; 87651; 93005; 96361; 96365; 96366; 96367; 96372; 96375; 99285; A9270; G0378; J1650; J1885; J2185; J3370; J7030

== ENCOUNTER 2024-05-23 16:08 | Outpatient (CLI) | payer BC, SELFPAY ==
--- NOTE | ~2024-05-23 | XR_ITS ---
XR_[id number]_CR Ordering provider: Luis Angel Giron MD History: . RIGHT SIDE NECK PAIN X 2 MONTHS/NO TRAUMA . Comparison: August 03, 2019 FINDINGS: VERTEBRAL BODIES: Normal height and alignment. No visible fracture or subluxation. The dens is intact . DISK SPACES: Slight narrowing of the disc C4-C5, C5-C6. Facet joint disease at the level of C2-C3 and C3-C4 and also at the level of C7-T1. PARASPINOUS SOFT TISSUES: No prevertebral soft tissue swelling. IMPRESSION: No acute osseous abnormality cervical spine. Reviewed, dictated and finalized at location A.
== END 2024-05-23 16:09 | disposition home or self-care (01) ==
LOC: CHSIMG 16:10
PROVIDERS: PCP Internal Medicine; Visit Provider Internal Medicine
DX: M54.2 Cervicalgia (principal)
CPT/HCPCS: 72040

== ENCOUNTER 2024-10-10 00:09 | Day surgery (SDC) | payer BC, SELFPAY ==
--- NOTE | 2024-10-10 08:56 | P.PNAN_ITS ---
Anes - Initial Pre Proc Eval Procedure: Operation Date: 10/10/24 11:00 Proposed Procedures p Screening Colonoscopy - Obie Cristobal DO Date/Time: 10/10/24 08:56 Surgeon: Obie Cristobal DO Pre Op Diagnosis: Screening for malignant neoplasm of colon Patient Data Age: 59 Gender: F Height: 1.57 m Weight: 74.5 kg Allergies Allergy/AdvReac Type Severity Reaction Status Date / Time No Known Allergies Allergy Verified 10/10/24 09:35 Home Medications ?Medication ?Instructions ?Recorded ?Confirmed ?Type pravastatin 20 mg tablet 20 mg PO DAILY 02/12/23 10/10/24 History alendronate 70 mg tablet 70 mg PO WEEKLY 10/06/23 10/03/24 History acetaminophen 325 mg tablet 650 mg (2 x 325 mg) PO Q4H PRN 10/07/23 10/03/24 Rx Mild Pain (1-3) Or Fever #0 tabs fluticasone propionate 50 2 spray intranasal BID #16 grams 10/07/23 10/10/24 Rx mcg/actuation nasal spray,suspension ibuprofen 400 mg tablet 400 mg PO Q6H PRN fever--second 10/07/23 10/10/24 Rx line #20 tabs pantoprazole 40 mg tablet,delayed 40 mg PO Q12H 10/03/24 10/10/24 History release Patient hx anesthesia problems: none Family hx anesthesia problems: none Results Review: All pre-operative results and documents have been reviewed as part of the pre- operative evaluation. [facility] Past Medical History Medical History (Updated 10/10/24 @ 08:56 by Efra Calvo DO) GERD (gastroesophageal reflux disease) Hyperlipidemia Patient denies medical problems Social History Social History Smoking status: Never smoker Second hand tobacco smoke exposure: Yes Alcohol intake: never Alcohol use details: Rarely Substance use: never Substance use type: does not use Do You Feel Safe in your Home?: Yes Lack of Transportation: No Lack of Food: Never True Current Housing: I Have Housing Concerned About Future Housing: No Difficulty Paying Gas/Electric Bills: No Difficulty Paying for Meds: No Currently Unemployed: No Education: Associate Degree Difficulty w/ Childcare or Family Care: No Additional living arrangements comments: with so Spiritual care concerns: No Anes - Eval Final PreProcedure Day of Procedure 10/10/24 08:56 Patient weight: overweight Heart: regular rate and rhythm Lungs: clear to auscultation Airway: Mallampati scale class II Neurological: alert and oriented Last oral intake: >/= 8 hours ASA classification: II Emergent: no Anesthetic plan: proceed Anesthesia type and monitoring: general GIVS and standard monitoring Results Review: All pre-operative results and documents have been reviewed as part of the pre- operative evaluation. Informed Consent: The patient's anesthetic plan and its attendant risks and benefits were discussed with the patient/family/POA. Questions were solicited and answers provided to the satisfaction of the patient/family/POA.
[2024-10-10 09:34] VITALS: BP 114/90; PULSE 98; RESP 16; TEMP 36.2; O2SAT 98
[2024-10-10] MEDS: LACTATED RINGERS 1,000 ML 150 ML IV CONT (09:46)
--- NOTE | 2024-10-10 10:38 | P.HP_ITS ---
H&P: HPI History of Present Illness Date/Time: 10/10/24 10:38 Chief Complaint: screening for colorectal cancer Narrative: this is a 59-year-old woman who presents for colonoscopy. Her last colonoscopy was 10 years ago and was normal. She denies any hematochezia or melena. She denies any family history of colon cancer. Review of Systems Review of Systems: All systems reviewed & are unremarkable except as noted in HPI and below Constitutional: Constitutional: Denies chills, Denies fever(s), Denies headache(s) and Denies weight loss Eyes: Eyes: Denies change in vision ENT: Denies dizziness, Denies headache(s), Denies neck mass and Denies throat swelling Cardiovascular: Cardiovascular: Denies chest pain, Denies lightheadedness and Denies dyspnea Respiratory: Respiratory: Denies cough, Denies dyspnea and Denies wheezing Gastrointestinal: Gastrointestinal: Denies abdominal pain, Denies change in bowel habits, Denies nausea and Denies vomiting Genitourinary: Genitourinary: Denies hematuria and Denies dysuria Musculoskeletal: Musculoskeletal: Reports as per HPI Integumentary/Breasts: Skin/Breast: Reports as per HPI Neurologic: Denies dizziness and Denies headache(s) Allergic/Immunologic: Allergic/Immunologic: Denies throat swelling and Denies wheezing [facility] Past Medical History Medical History (Updated 10/10/24 @ 10:39 by Obie Cristobal DO) GERD (gastroesophageal reflux disease) Hyperlipidemia Patient denies medical problems Social History Social History Smoking status: Never smoker Second hand tobacco smoke exposure: Yes Alcohol intake: never Alcohol use details: Rarely Substance use: never Substance use type: does not use Do You Feel Safe in your Home?: Yes Lack of Transportation: No Lack of Food: Never True Current Housing: I Have Housing Concerned About Future Housing: No Difficulty Paying Gas/Electric Bills: No Difficulty Paying for Meds: No Currently Unemployed: No Education: Associate Degree Difficulty w/ Childcare or Family Care: No Additional living arrangements comments: with so Spiritual care concerns: No Meds Home Medications and Allergies Home Medications ?Medication ?Instructions ?Recorded ?Confirmed ?Type pravastatin 20 mg tablet 20 mg PO DAILY 02/12/23 10/10/24 History alendronate 70 mg tablet 70 mg PO WEEKLY 10/06/23 10/03/24 History acetaminophen 325 mg tablet 650 mg (2 x 325 mg) PO Q4H PRN 10/07/23 10/03/24 Rx Mild Pain (1-3) Or Fever #0 tabs fluticasone propionate 50 2 spray intranasal BID #16 grams 10/07/23 10/10/24 Rx mcg/actuation nasal spray,suspension ibuprofen 400 mg tablet 400 mg PO Q6H PRN fever--second 10/07/23 10/10/24 Rx line #20 tabs pantoprazole 40 mg tablet,delayed 40 mg PO Q12H 10/03/24 10/10/24 History release Allergies Allergy/AdvReac Type Severity Reaction Status Date / Time No Known Allergies Allergy Verified 10/10/24 09:35 Vital Signs Vital Signs - 24 hr 10/10/24 09:34 Temperature 97.1 F L Pulse Rate 98 Respiratory Rate 16 Blood Pressure 114/90 Pulse Oximetry 98 Oxygen Delivery Room Air Exam Const: General: no acute distress and alert Orientation/consciousness: patient oriented x3 HENMT: Head: normocephalic and atraumatic Ears: hearing grossly normal bilaterally Face/Nose/Sinus: Normal nares present Mouth: Yes Normal oral and palatal mucosa present Eyes: Periorbital: periorbital findings normal Sclera: sclerae normal EOM: EOMs intact bilaterally Neck: Neck: normal visual inspection, no lymphadenopathy and trachea midline Chest: Chest palpation & inspection: normal inspection of the chest Resp: Effort & Inspection: normal respiratory effort Auscultation: clear to auscultation bilaterally Cardio: Jugular venous distension: no JVD Rate: regular rate Rhythm: regular rhythm Heart sounds: S1 normal heart sound present and S2 normal heart sound present Peripheral pulses: Peripheral pulses 2+ throughout GI: Inspection: normal to inspection GI Palp: Yes Soft to palpation, No Tenderness to palpation present (GI), No Guarding due to palpation present (GI) and No Rebound tenderness present Percussion: Yes normal to percussion Auscultation: normal bowel sounds : General: Yes no CVA tenderness Back/Spine/Pelvis: Back: no CVA tenderness Neuro: General: patient oriented x3, no focal motor deficits and CN's II-XI intact bilaterally Cognition (Neuro): normal cognition Speech: normal speech Motor exam (neuro): 5/5 motor strength present throughout Extrem: General: capillary refill normal and no clubbing, cyanosis or edema Assessment and Plan Assessment and plan (1) Screening for colorectal cancer: Code(s): Z12.11 - Encounter for screening for malignant neoplasm of colon; Z12.12 - Encounter for screening for malignant neoplasm of rectum Status: Acute Assessment and Plan: I have recommended colonoscopy. I have discussed the procedure, risks, benefits, and alternatives. Questions were answered. Patient is agreeable to proceed.
[2024-10-10 11:02] VITALS: BP 107/71; PULSE 99; RESP 16; O2SAT 98
[2024-10-10 11:12] VITALS: BP 117/75; PULSE 72; RESP 16; O2SAT 100
[2024-10-10 11:22] VITALS: BP 123/69; PULSE 69; RESP 16; O2SAT 100
== END 2024-10-10 11:34 | disposition home or self-care (01) ==
PROVIDERS: PCP Internal Medicine; Visit Provider Surgery
PROC: 0DJD8ZZ Inspection of Lower Intestinal Tract, Via Natural or Artificial Opening Endoscopic (ICD-10-PCS; CPT 45378; principal; 2024-10-10 11:00)
DX: Z12.11 Encounter for screening for malignant neoplasm of colon (principal); K64.8 Other hemorrhoids; K57.30 Diverticulosis of large intestine without perforation or abscess without bleeding; E78.5 Hyperlipidemia, unspecified; K21.9 Gastro-esophageal reflux disease without esophagitis; Z79.83 Long term (current) use of bisphosphonates; Z79.1 Long term (current) use of non-steroidal anti-inflammatories (NSAID)
CPT/HCPCS: 45378; J2003; J2704; J7120

== ENCOUNTER 2024-12-22 08:28 | Outpatient (CLI) | payer BC, SELFPAY ==
--- NOTE | ~2024-12-22 | US_ITS ---
Limited Abdominal Sonogram: Real-time sonographic imaging of the right upper quadrant was performed. Clinical History: Right upper quadrant pain Findings: The liver appears echogenic, with no evidence of mass lesion or bile duct dilatation. Main portal vein demonstrates normal direction of flow. The gallbladder is partially distended, without e vidence of gallstone. Focal gallbladder wall thickening may be related to obliquity of imaging and so mewhat folded morphology of the gallbladder. The common bile duct measures 4 mm. The visualized panc reas, aorta, and IVC are unremarkable. Impression: Diffuse fatty infiltration of the liver. Reviewed, dictated and finalized at location M. Impression: Diffuse fatty infiltration of the liver.
--- OUTSIDE RECORDS SUMMARY | 2024-12-22 09:07 | XMS_ITS | Data Portability ---
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 Lab cytology report, thin prep, smear or scraping, cervical or vaginal 2023 024 [place] [facility], [address] [address], [place], [address], 11:23:04 cytology report, thin prep, smear or scraping, cervical or vaginal 2022 023 [place] [facility], [address], [address], [address], 3 16:13:11 cytology report, thin prep, smear or scraping, cervical or vaginal 2022 023 [place] [facility], [address], [address], [place], [address], 3 16:11:05 unlisted lab - igp, rfx aptima HPV ascu 2018 019 [place] [facility], [address], [address], [place], [address], 0 11:09:26 fecal occult blood, stool 2018 019 In-Office Order, Internal Use Only DO Not Attach Compendium DO Not Attach Compendium, Do Not Delete/merge, [id number] 16:20:21 unlisted lab - igp, rfx aptima HPV ascu 2017 018 [place] [facility], [address], [address], [place], [address], 8 16:17:44 fecal occult blood, stool 2017 018 [place] In-Office Order, Internal Use Only DO Not Attach Compendium DO Not Attach Compendium, Do Not Delete/merge, [id number] 11:15:43 Referral None recorded. Procedures None recorded. Surgeries None recorded. Imaging None recorded. Medication Orders oxybutynin chloride 5 mg tablet 2017 018 cgraphima [facility] [address], [id number], 3 14:08:40 Patient TargetsNo targets recorded. Patient Instructions Encounter Date Encounter Id Patient Instructions Last Modified By Organization Details Last Modified Time 08/27/2018 [id number] bladder training : care instructions Not available 08/27/2018 11:10:44 kegel exercises: care instructions er Not available 08/27/2018 11:10:44 Stress Incontinence: Care Instructions Not available 08/27/2018 11:10:44 Urge Incontinence: Care Instructions gturner Not available 08/27/2018 11:10:44 01/26/2023 [id number] A healthy lifestyle: care instructions [email or web address] Not available 01/26/2023 14:24:14 05/29/2023 [id number] abnormal Pap test: care instructions [email or web address] Not available 05/29/2023 14:26:55 06/10/2024 [id number] A healthy lifestyle: care instructions er Not available 06/10/2024 11:36:14 Reason for Referral None Reported. Results Created Date Observation Date Name Description Value Unit Range Abnormal Flag Note LastModifiedBy Organization Detail LastModifiedTime 08/27/20 18 08/30/2018 pap, IG + refle x HR HPV diagnosis: Commen t NEGAT DAVID FOR INTRA EPITH ELIAL EMILIA N AND MICHAEL ZAMUDIO . Not Available [facility] ([facility]) [address], [place], [address], 08/30/2018 16:17:44 08/27/20 18 08/30/2018 pap, IG + refle x HR HPV specimen adequacy: Commen t Satis facto ry for evalu ation . Endoc ervic al and/o r squam ous metap lasti c cells (endo cervi yael compo nent) are prese nt. Not Available [facility] ([facility]) [address], [place], [address], 08/30/2018 16:17:44 08/27/20 18 08/30/2018 pap, IG + refle x HR HPV clinician provided ICD10: Commen t Z01.4 19 Not Available [facility] ([facility]) [address], [place], [address], 08/30/2018 16:17:44 08/27/20 18 08/30/2018 pap, IG + refle x HR HPV performed by: Heron t Kamille Disla Not Available [facility] ([facility]) [address] [place], [address], 08/30/2018 16:17:44 08/27/20 18 08/30/2018 pap, IG + refle x HR HPV . . Not Available [facility] ([facility]) [address] [place], [address], 08/30/2018 16:17:44 08/27/20 18 08/30/2018 pap, IG + refle x HR HPV note: Heron t The Pap smear is a scree liz test desig ata to aid in the detec tion of mello ligna nt and malig nant condi tions of the uteri ne cervi x. It is not a diagn ostic proce dure and shoul d not be used as the sole means of detec ting cervi yael cance r. Both false -posi tive and false -nega tive repor ts do occur . Not Available [facility] ([facility]) [address] [place], [address], 08/30/2018 16:17:44 08/27/20 18 08/30/2018 pap, IG + refle x HR HPV test methodology: Heron t This liqui d based ThinP rep(R ) pap test was scree ata with the use of an image guide d syste m. Not Available [facility] ([facility]) [address] [place], [address], 08/30/2018 16:17:44 08/27/20 18 08/30/2018 pap, IG + refle x HR HPV . Heron t The HPV DNA refle x crite brooks were not met with this speci men resul t there fore, no HPV testi ng was perfo rmed. Not Available [facility] ([facility]) [address] [place], [address], 08/30/2018 16:17:44 08/27/20 18 08/27/2018 fecal occul t blood , stool Occult Blood negati ve Not Available In-Office Order Internal Use Only DO Not Attach Compendium DO Not Attach Compendium, Do Not Delete/merge, [id number] 08/27/2018 10:39:41 10/11/20 19 10/14/2019 pap, IG + refle x HR HPV diagnosis: Heron infante NEGDANETTE DAVID FOR INTRA EPITH ELIAL LESIO N OR MICHAEL ZAMUDIO . CELLU LAR TINOCO ES ASSOC IATED WITH ATROP HY ARE PRESE NT. Not Available [facility] ([facility]) [address], [place], [address], 10/14/2019 11:09:26 10/11/20 19 10/14/2019 pap, IG + refle x HR HPV specimen adequacy: Heron infante Satis facto ry for evalu ation . Endoc ervic al compo nent may not be disti nguis hed in cases of atrop hy. Not Available [facility] ([facility]) [address], [place], [address], 10/14/2019 11:09:26 10/11/20 19 10/14/2019 pap, IG + refle x HR HPV clinician provided ICD10: Heron infante Z01.4 19 Not Available [facility] ([facility]) [address] [place], [address], 10/14/2019 11:09:26 10/11/20 19 10/14/2019 pap, IG + refle x HR HPV performed by: Heron Garza th, Cytot villa infante (ASCP ) Not Available [facility] ([facility]) [address] [place], [address], 10/14/2019 11:09:26 10/11/20 19 10/14/2019 pap, IG + refle x HR HPV . . Not Available [facility] ([facility]) [address], [place], [address], 10/14/2019 11:09:26 10/11/20 19 10/14/2019 pap, IG + refle x HR HPV note: Commen t The Pap smear is a scree liz test desig ata to aid in the detec tion of mello ligna nt and malig nant condi tions of the uteri ne cervi x. It is not a diagn ostic proce dure and shoul d not be used as the sole means of detec ting cervi yael cance r. Both false -posi tive and false -nega tive repor ts do occur . Not Available [facility] ([facility]) [address], [place], [address], 10/14/2019 11:09:26 10/11/20 19 10/14/2019 pap, IG + refle x HR HPV test methodology: Commen t This liqui d based ThinP rep(R ) pap test was scree ata with the use of an image guide d syste m. Not Available [facility] ([facility]) [address], [place], [address], 10/14/2019 11:09:26 10/11/20 19 10/14/2019 pap, IG + refle x HR HPV . Commen t The HPV DNA refle x crite brooks were not met with this speci men resul t there fore, no HPV testi ng was perfo rmed. Not Available [facility] ([facility]) [address], [place], [address], 10/14/2019 11:09:26 10/11/20 19 10/11/2019 fecal occul t blood , stool Occult Blood negati ve Not Available In-Office Order Internal Use Only DO Not Attach Compendium DO Not Attach Compendium, Do Not Delete/merge, [id number] 10/11/2019 12:36:42 01/27/20 23 02/02/2023 IGP, RFX APTIM A HPV ASCU diagnosis: Commen t abnormal EPITH ELIAL CELL ABNOR MALIT Y. ATYPI YAEL SQUAM OUS CELLS , CANNO T EXCLU DE HIGH- GRADE SQUAM OUS INTRA EPITH ELIAL LESIO N (ASC- H). CELLU LADAN TINOCO ES ASSOC IATED WITH ATROP HY ARE PRESE NT. Not Available [facility] ([facility]) [address] [place], [address], 02/02/2023 16:11:05 01/27/20 23 02/02/2023 IGP, RFX APTIM A HPV ASCU recommendati on: Commen t abnormal Sugge st follo w up as clini tano appro priat e. Not Available [facility] ([facility]) [address] [place], [address], 02/02/2023 16:11:05 01/27/20 23 02/02/2023 IGP, RFX APTIM A HPV ASCU specimen adequacy: Heron t Satis facto ry for evalu ation . Endoc ervic al and/o r squam ous metap lasti c cells (endo cervi yael compo nent) are prese nt. Not Available [facility] ([facility]) [address] [place], [address], 02/02/2023 16:11:05 01/27/20 23 02/02/2023 IGP, RFX APTIM A HPV ASCU clinician provided ICD10: Heron t Z01.4 19 Not Available [facility] ([facility]) [address] [place], [address], 02/02/2023 16:11:05 01/27/20 23 02/02/2023 IGP, RFX APTIM A HPV ASCU performed by: Heron Garza th, Cytot villa infante (ASCP ) Not Available [facility] ([facility]) [address] [place], [address], 02/02/2023 16:11:05 01/27/20 23 02/02/2023 IGP, RFX APTIM A HPV ASCU electronical ly signed by: Heron Lira MD, Patho logis t Not Available [facility] ([facility]) [address], [place], [address], 02/02/2023 16:11:05 01/27/20 23 02/02/2023 IGP, RFX APTIM A HPV ASCU . . Not Available [facility] ([facility]) [address] [place], [address], 02/02/2023 16:11:05 01/27/2002/02/2023 IGP, RFX APTIM A HPV ASCU pathologist provided ICD10: Heron infante R87.6 11 Not Available [facility] ([facility]) [address] [place], [address], 02/02/2023 16:11:05 01/27/20 23 02/02/2023 IGP, RFX APTIM A HPV ASCU note: Heron infante The Pap smear is a scree ilz test desig ata to aid in the detec tion of mello ligna nt and malig nant condi tions of the uteri ne cervi x. It is not a diagn ostic proce dure and shoul d not be used as the sole means of detec ting cervi yael cance r. Both false -posi tive and false -nega tive repor ts do occur . Not Available [facility] ([facility]) [address] [place], [address], 02/02/2023 16:11:05 01/27/20 23 02/02/2023 IGP, RFX APTIM A HPV ASCU test methodology: Heron infante This liqui d based ThinP rep(R ) pap test was scree ata with the use of an image guide jude systmoose m. Not Available [facility] ([facility]) [address] [place], [address], 02/02/2023 16:11:05 01/27/20 23 02/02/2023 IGP, RFX APTIM A HPV ASCU . Heron t The HPV DNA refle x crite brooks were not met with this speci men resul t there fore, no HPV testi ng was perfo rmed. Not Available [facility] ([facility]) [address] [place], [address], 02/02/2023 16:11:05 05/29/20 23 06/04/2023 IGP, RFX APTIM A HPV ASCU diagnosis: Heron t NEGAT DAVID FOR INTRA EPITH ELIAL EMILIA N OR MICHAEL ZAMUDIO . THIS SPECI MEN WAS RESCR EENED PART OF OUR QUALI TY CONTR OL PROGR AM. Not Available [facility] ([facility]) [address], [place], [address], 06/04/2023 16:13:10 05/29/20 23 06/04/2023 IGP, RFX APTIM A HPV ASCU specimen adequacy: Heron t Satis facto ry for evalu ation . Endoc ervic al compo nent may not be disti nguis hed in cases of atrop hy. Not Available [facility] ([facility]) [address], [place], [address], 06/04/2023 16:13:10 05/29/20 23 06/04/2023 IGP, RFX APTIM A HPV ASCU clinician provided ICD10: Heron infante R87.6 10 Not Available [facility] ([facility]) [address] [place], [address], 06/04/2023 16:13:10 05/29/20 23 06/04/2023 IGP, RFX APTIM A HPV ASCU performed by: Heron man, Cytot villa infante Not Available [facility] ([facility]) [address] [place], [address], 06/04/2023 16:13:10 05/29/20 23 06/04/2023 IGP, RFX APTIM A HPV ASCU QC reviewed by: Martin Serna alaor y Cytot villa infante (ASCP ) Not Available [facility] ([facility]) [address], [place], [address], 06/04/2023 16:13:10 05/29/20 23 06/04/2023 IGP, RFX APTIM A HPV ASCU . . Not Available [facility] ([facility]) [address], [place], [address], 06/04/2023 16:13:10 05/29/2006/04/2023 IGP, RFX APTIM A HPV ASCU note: Heron infante The Pap smear is a scree liz test desig ata to aid in the detec tion of mello ligna nt and malig nant condi tions of the uteri ne cervi x. It is not a diagn ostic proce dure and shoul d not be used as the sole means of detec ting cervi yael cance r. Both false -posi tive and false -nega tive repor ts do occur . Not Available [facility] ([facility]) [address], [place], [address], 06/04/2023 16:13:10 05/29/2006/04/2023 IGP, RFX APTIM A HPV ASCU test methodology: Heron infante This liqui d based ThinP rep(R ) pap test was scree ata with the use of an image guide jude hummel. Not Available [facility] ([facility]) [address] [place], [address], 06/04/2023 16:13:10 05/29/20 23 06/04/2023 IGP, RFX APTIM A HPV ASCU . Heron infante The HPV DNA refle x crite brooks were not met with this speci men resul t there fore, no HPV testi ng was perfo rmed. Not Available [facility] ([facility]) [address] [place], [address], 06/04/2023 16:13:10 06/10/20 24 06/16/2024 IGP, RFX APTIM A HPV ASCU diagnosis: HERON Infante NEGAT DAVID FOR INTRA EPITH ELIAL LESIO N OR MICHAEL ZAMUDIO . Not Available [facility] ([facility]) [address], [place], [address], 06/16/2024 11:23:04 06/10/20 24 06/16/2024 IGP, RFX APTIM A HPV ASCU specimen adequacy: HERON Infante Satis facto ry for evalu ation . Endoc ervic al and/o r squam ous metap lasti c cells (endo cervi yael compo nent) are prese nt. Not Available [facility] ([facility]) [address], [place], [address], 06/16/2024 11:23:04 06/10/20 24 06/16/2024 IGP, RFX APTIM A HPV ASCU clinician provided ICD10: HERON Infante Z01.4 19 Not Available [facility] ([facility]) [address] [place], [address], 06/16/2024 11:23:04 06/10/20 24 06/16/2024 IGP, RFX APTIM A HPV ASCU performed by: HERON [place] infante (ASCP ) Not Available [facility] ([facility]) [address] [place], [address], 06/16/2024 11:23:04 06/10/20 24 06/16/2024 IGP, RFX APTIM A HPV ASCU . . Not Available [facility] ([facility]) [address] [place], [address], 06/16/2024 11:23:04 06/10/20 24 06/16/2024 IGP, RFX APTIM A HPV ASCU note: COMMEN T The Pap smear is a scree liz test desig ata to aid in the detec tion of mello ligna nt and malig nant condi tions of the uteri ne cervi x. It is not a diagn ostic proce dure and shoul d not be used as the sole means of detec ting cervi yael cance r. Both false -posi tive and false -nega tive repor ts do occur . Not Available [facility] ([facility]) [address], [place], [address], 06/16/2024 11:23:04 06/10/20 24 06/16/2024 IGP, RFX APTIM A HPV ASCU test methodology: COMMEN T This liqui d based ThinP rep(R ) pap test was scree ata with the use of an image guide d syste m. Not Available [facility] ([facility]) [address], [place], [address], 06/16/2024 11:23:04 06/10/20 24 06/16/2024 IGP, RFX APTIM A HPV ASCU . COMMEN T The HPV DNA refle x crite brooks were not met with this speci men resul t there fore, no HPV testi ng was perfo rmed. Not Available [facility] ([facility]) [address], [place], [address], 06/16/2024 11:23:04 06/06/20 19 06/04/2019 MAMMO , diagn ostic , tomos ynthe sis, bilat eral No observ ation record ed. [email or web address] [address] , [place], [address], 06/06/2019 15:11:12 09/07/20 20 09/05/2020 MAMMO , scree liz, digit al, bilat eral No observ ation record ed. yuriy [place] [address] [place], [place], [address], 09/10/2020 09:20:48 01/19/20 23 01/17/2023 MAMMO , scree liz, digit al, bilat eral No observ ation record ed. ernesto[address] [place], [address], 01/19/2023 09:53:14 03/30/20 24 03/30/2024 MAMMO , scree liz, digit al, bilat eral No observ ation record ed. [facility] [place] [address] [place], [address], 03/31/2024 10:02:35 Result Notes None recorded. Problems Name Problem SNOMED Code Status Onset Date Resolution Date Notes Provider Name and Address Organization Details Recorded Time Genuine stress incontinence Active Jamar De Paz MD Attn: Garima salazar,[address] [place], [address] [place] [address] 5 16:08:06 Problem Notes None recorded. Procedures Surgical History Date Name Laterality Status Provider Name and Address Organization Details Recorded Time 4 Date of Last Pap Smear completed Makeda Higgins RN [facility] 06/16/2024 11:35:11 4 Most Recent Mammogram completed Makeda Higgins RN [facility] 03/31/2024 10:02:46 1 Lung Surgery completed Makeda Higgins RN [facility] 01/15/2015 17:08:27 Imaging Results Imaging Date Name Status LastModified by [facility] Details LastModified Time 06/04/2019 MAMMO, diagnostic, tomosynthesis, bilateral completed [address] [place], [address], 06/06/2019 15:11:12 09/05/2020 MAMMO, screening, digital, bilateral completed yuriy [place] [address] Lin, [place], [address], 09/10/2020 09:20:48 01/17/2023 MAMMO, screening, digital, bilateral completed [facility] [address] [place], [address], 01/19/2023 09:53:14 03/30/2024 MAMMO, screening, digital, bilateral completed nicolás [address] [place], [address], 03/31/2024 10:02:35 Procedure Notes None recorded. Medical Equipment None Reported. Allergies No known drug allergies Medications Name Sig Start Date Stop Date Status Note LastModified by Organization Details LastModified Time cyclobenzapri ne 10 mg tablet 01/26 completed Not Available Not Available Not Available prednisone 10 mg tablet 01/26 completed Not Available Not Available Not Available doxycycline hyclate 100 mg capsule 01/26 completed Not Available Not Available Not Available azithromycin 250 mg tablet 01/26 completed Not Available Not Available Not Available pravastatin 40 mg tablet 01/26 completed Not Available Not Available Not Available benzonatate 200 mg capsule 01/26 completed Not Available Not Available Not Available prednisone 20 mg tablet 05/29 completed Not Available Not Available Not Available alendronate 70 mg tablet active Not Available Not Available Not Available doxycycline monohydrate 100 mg tablet 01/26 completed Not Available Not Available Not Available alprazolam 0.25 mg tablet 06/10 completed Not Available Not Available Not Available doxycycline monohydrate 100 mg capsule 01/26 completed Not Available Not Available Not Available hyoscyamine sulfate 0.125 mg tablet 01/26 completed Not Available Not Available Not Available oseltamivir 75 mg capsule 06/10 completed Not Available Not Available Not Available metronidazole 0.75 % topical cream 01/26 completed Not Available Not Available Not Available ibuprofen 400 mg tablet 06/10 completed Not Available Not Available Not Available diclofenac sodium 75 mg tablet,delaye d release 01/26 completed Not Available Not Available Not Available pravastatin 20 mg tablet active Not Available Not Available Not Available levofloxacin 500 mg tablet 01/26 completed Not Available Not Available Not Available methylprednis olone 4 mg tablets in a dose pack 01/26 completed Not Available Not Available Not Available oxybutynin chloride 5 mg tablet TAKE ONE TABLET BY MOUTH TWICE A DAY 01/26 completed Not Available Not Available Not Available fluticasone propionate 50 mcg/actuation nasal spray,suspens ion 06/10 completed Not Available Not Available Not Available metronidazole 0.75 % topical gel 01/26 completed Not Available Not Available Not Available amoxicillin 875 mg-potassium clavulanate 125 mg tablet 06/10 completed Not Available Not Available Not Available GaviLyte-N 420 gram oral solution 01/26 completed Not Available Not Available Not Available Vitals Date Recorded Body height Body mass index (BMI) Body weight Systolic blood pressure Diastolic blood pressure Provider Name and Address Organization Details Last Updated DateTime 08/27/2018 157.48 cm 27.5 kg/m2 98293.29 g 106 mm[Hg] 82 mm[Hg] Brianda man MA [facility] 8 10:50:39 Date Recorded Body height Body mass index (BMI) Body weight Systolic blood pressure Diastolic blood pressure Provider Name and Address Organization Details Last Updated DateTime 10/11/2019 157.48 cm 28.3 kg/m2 23524.82 g 114 mm[Hg] 70 mm[Hg] Sandra Horne [facility] 9 12:18:02 Date Recorded Body height Body mass index (BMI) Body weight Systolic blood pressure Diastolic blood pressure Provider Name and Address Organization Details Last Updated DateTime 01/26/2023 157.48 cm 28 kg/m2 17492.06 g 144 mm[Hg] 96 mm[Hg] Tila Bledsoe [facility] 3 14:19:54 Date Recorded Body height Body mass index (BMI) Body weight Systolic blood pressure Diastolic blood pressure Provider Name and Address Organization Details Last Updated DateTime 05/29/2023 157.48 cm 29.6 kg/m2 36448.6 g 145 mm[Hg] 90 mm[Hg] Tila Bledsoe [facility] 3 14:17:01 Date Recorded Body height Body mass index (BMI) Body weight Systolic blood pressure Diastolic blood pressure Provider Name and Address Organization Details Last Updated DateTime 06/10/2024 157.48 cm 30.5 kg/m2 24326.93 g 127 mm[Hg] 86 mm[Hg] NICCI [place] [facility] 11:14:40 Social History Question Answer Notes LastModified by Organizat ion Details LastModified Time Tobacco Smoking Status Never Smoker NICCI [place] null, [place] - [facility] 01/26/2023 14:21:26 In The 14 Days Before Symptom Onset, Have You Had Close Contact With A Laboratory-confirm ed COVID-19 While That Case Was Ill? No Information n ot available 01/26/2023 In The 14 Days Before Symptom Onset, Have You Had Close Contact With A Person Who Is Under Investigation For COVID-19 While That Person Was Ill? No Information not available 01/26/2023 Have You Been To An Area Known To Be High Risk For COVID-19? No Information not available 01/26/2023 What Was The Date Of Your Most Recent Tobacco Screening? 06/10/2024 Information not available 06/10/2024 How Many Children Do You Have? 1 Information not available 01/18/2015 What Is Your Relationship Status? Single Information not available 01/18/2015 Has Tobacco Cessation Counseling Been Provided? No Information not available 01/26/2023 Do You Or Have You Ever Used Any Other Forms Of Tobacco Or Nicotine? No Information not available 01/26/2023 Sex: Female Functional Status None recorded. Mental Status None recorded. Family History Relationship Description Onset Age of this Age Resolved Age Notes LastModified by Organization Details LastModified Time Father No current problems or disability [email or web address] Not available 01/26 14:10:44 Mother No current problems or disability [email or web address] Not available 01/26 14:10:44 Notes:no breast ca hx Medical History Condition Response Arthritis Y Gynecological History Statement/Question Response Abnormal Pap Yes Menses Monthly N STIs/STDs N Date of Last Pap Smear 06/10/2024 Sexual Problems? N Current Control Method None Most Recent Mammogram 03/30/2024 LMP Definite Obstetrics History GPAL:G 1 P 1 0 0 1 Type Value Full Term 1 Living 1 Total 1 Immunizations Vaccine Type Date Status Note Provider Nam e and Address Organization Details Recorded Time Influenza, split virus, quadrivalent, preservative 7 completed Tila Bledsoe, R[place], [place] [facility] 01/26/2023 14:21:49 Influenza, split virus, quadrivalent, preservative 0 completed Tila Bledsoe [place] [facility] 01/26/2023 14:21:49 zoster recombinant 1 completed Tila Bledso[place], [place] [facility] 01/26/2023 14:21:49 zoster recombinant 0 completed Tila [place]ledso[place] [facility] 01/26/2023 14:21:49 COVID-19, mRNA, LNP-S, PF, 100 mcg/0.5mL dose or 50 mcg/0.25mL dose 1 completed Tila Bledsoe [place] [facility] 01/26/2023 14:21:49 COVID-19, mRNA, LNP-S, PF, 100 mcg/0.5mL dose or 50 mcg/0.25mL dose 2 completed Tila Bledsoe, [place] [facility] 01/26/2023 14:21:49 COVID-19, mRNA, LNP-S, PF, 100 mcg/0.5mL dose or 50 mcg/0.25mL dose 1 completed Tila Bledsoe [place] [facility] 01/26/2023 14:21:49 COVID-19, mRNA, LNP-S, PF, 100 mcg/0.5mL dose or 50 mcg/0.25mL dose 0 completed Tila Bledsoe [place] [facility] 01/26/2023 14:21:49 Influenza, split virus, quadrivalent, PF 9 completed Tila [place]led[place] [facility] 01/26/2023 14:21:49 Influenza, split virus, quadrivalent, PF 2 completed Tila Bledsoe[place] [facility] 01/26/2023 14:21:49 Influenza, split virus, quadrivalent, PF 1 completed Tila Bledso[place] [facility] 01/26/2023 14:21:49 Influenza, split virus, quadrivalent, PF 8 completed Tila Ladi, [place] [facility] 01/26/2023 14:21:49 Pneumococcal conjugate PCV20, polysaccharide [id number] conjugate, adjuvant, PF 3 completed Tila Ladi, [place] [facility] 06/10/2024 11:05:49 Influenza, split virus, quadrivalent, PF 3 completed Tila Bledsoe[place] [facility] 06/10/2024 11:05:49 Past Encounters Encounter ID Performer Location Encounter Start Date Encounter Closed Date Diagnosis/Indication Diagnosis SNOMED-CT Code Diagnosis ICD10 Code Diagnosis Note [id number] [facility] [address] [facility] [address] [place] [address] 01/18/2015 15:17:08 01/18/2015 16:31:33 Gynecologic examination [id number] Genuine st ress incontinence [id number] MD Alicia Andrews 14 OB [address] [facility] [address] [facility][note 3] [place] [address] 08/27/2018 10:34:09 08/27/2018 17:32:33 Screening for malignant neoplasm of colon 865084063 Z12.11 Gynecologi c examination 05989527 Z01.419 Mixed urin jesse incontinence 789244390 N39.46 [id number] MD Alicia Andrews 14 OB [address] [facility] [address] [place] [address] 10/11/2019 12:08:36 10/11/2019 12:41:58 Gynecologic examination 00261902 Z01.419 Menopause present 198687 006 N95.1 Screening for malignant neoplasm of colon 836209028 Z12.11 [id number] MD Alicia Andrews 14 OB [address] [facility] [address] [place] [address] 01/26/2023 13:54:54 01/28/2023 10:46:27 Overweight 403100259 E66.3 Gynecologi c examination 55688769 Z01.419 Menopause present 632774 006 N95.1 [id number] MD Alicia Andrews 14 OB [address] [facility] [place] [address] 05/29/2023 14:02:07 06/02/2023 15:58:51 Atypical squamous cells of undetermined significance on cervical Papanicolaou smear 420756937 R87.751 [id number] MD Alicia Andrews 14 OB [address] [facility] [place] [address] 06/10/2024 10:54:52 2024 06:51:40 Obesity 794154888 E66.8 Gynecologi c examination 05815814 Z01.419 Menopause present 474504 006 N95.1 Health Concerns Section Related Observation LastModified by Organization Detai ls LastModified Time None Recorded Concern Status LastModified by Organization Details LastModified Time None Recorded Advance Directives Directive None Recorded Payers Encounter Date Sequence Insurance Name Policy Number Policy Mandel Covered Member ID Mandel Member ID Guarantor Name 08/27/2018 1 [place] [id number] Sally K Mihcaels [id number] Sally Michaels 10/11/2019 1 [place] [id number] Sally K Michaels [id number] Sally Michaels 01/26/2023 1 [place] [id number] Sally K Michaels [id number] Sally Michaels 05/29/2023 1 [place] [id number] Sally K Michaels [id number] 33 Sally Michaels 06/10/2024 1 [place] [id number] Sally K Michaels [id number] Sally Michaels Notes Date Note Type Note Provider Name and Address Organization Details Recorded Time 08/27/2018 text/html Annual GYNReport ed bypatient.Menstrua l cycle:no cycle for 3 years Urinary symptoms:No hematuria; No incontinence Vulva:No genital lesion Vagina:Normal vaginal discharge Breast:No breast pain; No breast lump; No nipple discharge Sexual complaints:No sexual complaints; No pain during intercourse; Normal libido Menopausal Symptoms:No menopausal symptoms; Normal vaginal lubrication Psychological symptoms:No depression; No anxiety; No PMDD Jamar De Paz MD Attn: [address] [place], [address], [facility] 08/27/2018 11:12:55 10/11/2019 text/html Annual GYNReport ed bypatient.Menstrua l cycle:no cycle for 3 years Urinary symptoms:No hematuria; No incontinence Vulva:No genital lesion Vagina:Normal vaginal discharge Breast:No breast pain; No breast lump; No nipple discharge Sexual complaints:No sexual complaints; No pain during intercourse; Normal libido Menopausal Symptoms:No menopausal symptoms; Normal vaginal lubrication Psychological symptoms:No depression; No anxiety; No PMDD Jamar De Paz MD Attn: [address] [place], [address], [facility] 10/11/2019 12:39:08 01/26/2023 text/html Annual GYNReport ed bypatient.Menstrua l cycle:no cycle for 7 years Urinary symptoms:No hematuria; No incontinence Vulva:No genital lesion Vagina:Normal vaginal discharge Breast:No breast pain; No breast lump; No nipple discharge Sexual complaints:No sexual complaints; No pain during intercourse; Normal libido Menopausal Symptoms:No menopausal symptoms; Normal vaginal lubrication Psychological symptoms:No depression; No anxiety; No PMDD had one episode of spotting in last 3 years Jamar De Paz MD Attn: [address] [place], [address], [facility] 01/26/2023 14:33:35 05/29/2023 text/html 01/2023 Ascus pap no change in partner in 15 yrs Jamar De Paz MD Attn: [address] [place], [address], [facility] 05/29/2023 14:27:04 06/10/2024 text/html Annual GYNReport ed bypatient.Menstrua l cycle:no cycle for 7 years Urinary symptoms:No hematuria; No incontinence Vulva:No genital lesion Vagina:Normal vaginal discharge Breast:No breast pain; No breast lump; No nipple discharge Sexual complaints:No sexual complaints; No pain during intercourse; Normal libido Menopausal Symptoms:No menopausal symptoms; Normal vaginal lubrication Psychological symptoms:No depression; No anxiety; No PMDD Jamar De Paz MD Attn: [address] [place], [address], [place] [facility] 06/10/2024 11:43:40 OBGyn Episode No OBEpisode recorded.
--- OUTSIDE RECORDS SUMMARY | 2024-12-22 09:07 | XMS_ITS ---
Author Organization Unknown Address [address] [place] [phone] Phone Care Team Providers Care Integrated Marketing Manager Name Role Phone ALICE MACKAY Attending Unavailable Immunization Immunization Date Status Additional Notes Code Code System Tdap 07/21/2024 Completed 115 CVX Influenza, split virus, quadrivalent, PF 08/25/2018 Completed 150 CVX Influenza, split virus, quadrivalent, PF 07/29/2019 Completed 150 CVX Influenza, split virus, quadrivalent, PF 08/01/2021 Completed 150 CVX Influenza, split virus, quadrivalent, PF 07/30/2022 Completed 150 CVX Influenza, split virus, quadrivalent, PF 07/17/2023 Completed 150 CVX Influenza, split virus, quadrivalent, preservative 06/10/2017 Completed 158 C VX Influenza, split virus, quadrivalent, preservative 08/16/2020 Completed 158 C VX zoster recombinant 09/19/2020 Completed 187 CVX zoster recombinant 01/30/2021 Completed 187 CVX COVID-19, mRNA, LNP-S, PF, 1 00 mcg/0.5mL dose or 50 mcg/0.25mL dose 10/06/2020 Completed 207 CVX COVID-19, mRNA, LNP-S, PF, 1 00 mcg/0.5mL dose or 50 mcg/0.25mL dose 11/03/2020 Completed 207 CVX COVID-19, mRNA, LNP-S, PF, 1 00 mcg/0.5mL dose or 50 mcg/0.25mL dose 09/18/2021 Completed 207 CVX COVID-19, mRNA, LNP-S, PF, 1 00 mcg/0.5mL dose or 50 mcg/0.25mL dose 05/09/2022 Completed 207 CVX Pneumococcal conjugate PCV20 , polysaccharide [id number] conjugate, adjuvant, PF 08/10/2023 Completed 216 CVX Social History Type Status Start Date End Date Code Code Syst em Smoking History Unknown if ever smoked [id number] Sex Female Hospital Discharge Instructions Should you have any questions prior to discharge, please contact a member of your healthcare team. If you have left the hospital and have any questions, please contact your primary care physician. Reason For Referral No Data Found Plan of Treatment MRI Cervical WO Contrast (69136) 2019 MRI Lumbar WO Contrast (21184) 01/16/20 MRI Cervical WO Contrast (26861) 2019 MRI Lumbar WO Contrast (32399) 01/16/20 MRI Brain WWO Contrast (13584) 02/06/20 23 Encounters Encounter Diagnosis Start Date Code Code Sys tem Cervicalgia 07/12/2024 SNOMED-CT Personal Care Team Section Performer Name Performer Role Active Date Inactive Da te
--- OUTSIDE RECORDS SUMMARY | 2024-12-22 09:07 | XMS_ITS ---
Author Organization Unknown Address [address] [place] [phone] Phone Care Team Providers Care Multimedia Coordinator Name Role Phone ALICE MACKAY Attending Unavailable [...] 207 CVX Pneumococcal conjugate PCV20 , polysaccharide [id number] conjugate, adjuvant, PF 08/10/2023 Completed 216 CVX Social History Type Status Start Date End Date Code Code Syst em Smoking History Unknown if ever smoked [id number] Sex Female Hospital Discharge Instructions Should you have any questions prior to discharge, please contact a member of your healthcare team. If you have left the hospital and have any questions, please contact your primary care physician. Reason For Referral No Data Found Plan of Treatment MRI Cervical WO Contrast (55996) 2019 MRI Lumbar WO Contrast (43282) 01/16/20 MRI Cervical WO Contrast (25615) 2019 MRI Lumbar WO Contrast (14722) 01/16/20 MRI Brain WWO Contrast (57840) 02/06/20 23 Encounters Encounter Diagnosis Start Date Code Code Sys tem Cervicalgia 06/14/2024 SNOMED-CT Personal Care Team Section Performer Name Performer Role Active Date Inactive Da te
== END 2024-12-22 08:29 | disposition home or self-care (01) ==
PROVIDERS: PCP Internal Medicine; Visit Provider Internal Medicine
DX: R10.11 Right upper quadrant pain (principal); R10.13 Epigastric pain; K76.0 Fatty (change of) liver, not elsewhere classified
CPT/HCPCS: 76705

== ENCOUNTER 2024-12-26 09:00 | Outpatient (CLI) | payer BC, SELFPAY ==
--- NOTE | ~2024-12-26 | NM_ITS ---
EXAMINATION: NM hepatobiliary w pharm DATE: 12/26/2024 11:18 INDICATION: Right upper cord and abdominal pain COMPARISON: None. TECHNIQUE: 6.1 mCi Tc-99m mebrofenin (Choletec) was administered intravenously. Scintigraphic images of the abdomen were obtained for one hour. 1.5 mcg sincalide (Kinevac) was administered by slow intr avenous infusion, and imaging was continued for 30 minutes. Gallbladder ejection fraction was calcula gustabo by the technologist. FINDINGS: There is normal clearance of radiotracer from the blood pool. There is homogeneous tracer uptake by t he liver. Activity progresses to the gallbladder and bowel. The gallbladder ejection fraction (GBEF) is 11% (normal 10-90%, but most patient with gallbladder dysfunction have GBEF < 35% which does over lap with the normal range). IMPRESSION: 1. Gallbladder ejection fraction is at the lowest limits of normal. This could be normal but is als o within the range of overlap with gallbladder dysfunction or chronic cholecystitis in the appropriat e clinical setting. Reviewed, dictated and finalized at location A. IMPRESSION: 1. Gallbladder ejection fraction is at the lowest limits of normal. This coul d be normal but is also within the range of overlap with gallbladder dysfunctio n or chronic cholecystitis in the appropriate clinical setting.
--- OUTSIDE RECORDS SUMMARY | 2024-12-26 09:46 | XMS_ITS ---
Author Organization Unknown Address [address] [place] [phone] Phone Care Team Providers Care Personnel Security Assistant Name Role Phone ALICE MACKAY Attending Unavailable [...] 207 CVX Pneumococcal conjugate PCV20 , polysaccharide [id number] conjugate, adjuvant, PF 08/10/2023 Completed 216 CVX Social History Type Status Start Date End Date Code Code Syst em Smoking History Unknown if ever smoked [id number] Sex Female Hospital Discharge Instructions Should you have any questions prior to discharge, please contact a member of your healthcare team. If you have left the hospital and have any questions, please contact your primary care physician. Reason For Referral No Data Found Plan of Treatment MRI Cervical WO Contrast (87869) 2019 MRI Lumbar WO Contrast (18088) 01/16/20 MRI Cervical WO Contrast (09254) 2019 MRI Lumbar WO Contrast (09504) 01/16/20 MRI Brain WWO Contrast (63528) 02/06/20 23 Encounters Encounter Diagnosis Start Date Code Code Sys tem Cervicalgia 07/12/2024 SNOMED-CT Personal Care Team Section Performer Name Performer Role Active Date Inactive Da te
--- OUTSIDE RECORDS SUMMARY | 2024-12-26 09:46 | XMS_ITS | Data Portability ---
Author Organization [facility] Address [address] 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 Lab cytology report, thin prep, smear or scraping, cervical or vaginal 2023 024 BRIARCLIFF MANOR [facility], [address] [address], [place], [address], 11:23:04 cytology report, thin prep, smear or scraping, cervical or vaginal 2022 023 EULALIO [facility], [address], [address], [address], 3 16:13:11 cytology report, thin prep, smear or scraping, cervical or vaginal 2022 023 EULALIO [facility], [address] [facility], [address], [place], [address], 3 16:11:05 unlisted lab - igp, rfx aptima HPV ascu 2018 019 EULALIO [facility], [address] [facility], [address], [place], [address], 0 11:09:26 fecal occult blood, stool 2018 019 In-Office Order, Internal Use Only DO Not Attach Compendium DO Not Attach Compendium, Do Not Delete/merge, [id number] 9 16:20:21 unlisted lab - igp, rfx aptima HPV ascu 2017 018 BRIARCLIFF MANOR [facility], [address] [facility], [address], [place], [address], 8 16:17:44 fecal occult blood, stool 2017 018 BRIARCLIFF MANOR In-Office Order, Internal Use Only DO Not Attach Compendium DO Not Attach Compendium, Do Not Delete/merge, [id number] 11:15:43 Referral None recorded. Procedures None recorded. Surgeries None recorded. Imaging None recorded. Medication Orders oxybutynin chloride 5 mg tablet 2017 018 cgraphima [facility] [address], [id number], 3 14:08:40 Patient TargetsNo targets recorded. Patient Instructions Encounter Date Encounter Id Patient Instructions Last Modified By Organization Details Last Modified Time 08/27/2018 [id number] bladder training : care instructions Not available 08/27/2018 11:10:44 kegel exercises: care instructions er Not available 08/27/2018 11:10:44 Stress Incontinence: Care Instructions Not available 08/27/2018 11:10:44 Urge Incontinence: Care Instructions gturner Not available 08/27/2018 11:10:44 01/26/2023 [id number] A healthy lifestyle: care instructions [email or web address] Not available 01/26/2023 14:24:14 05/29/2023 [id number] abnormal Pap test: care instructions gturner Not available 05/29/2023 14:26:55 06/10/2024 [id number] A healthy lifestyle: care instructions er Not available 06/10/2024 11:36:14 Reason for Referral None Reported. Results Created Date Observation Date Name Description Value Unit Range Abnormal Flag Note LastModifiedBy Organization Detail LastModifiedTime 08/27/20 18 08/30/2018 pap, IG + refle x HR HPV diagnosis: Commen t NEGAT DAVID FOR INTRA EPITH ELIAL EMILIA N AND MICHAEL ZAMUDIO . Not Available [facility] ([facility]) [address] [facility], [place], [address], 08/30/2018 16:17:44 08/27/20 18 08/30/2018 pap, IG + refle x HR HPV specimen adequacy: Commen t Satis facto ry for evalu ation . Endoc ervic al and/o r squam ous metap lasti c cells (endo cervi yael compo nent) are prese nt. Not Available [facility] ([facility]) [address] [facility], [place], [address], 08/30/2018 16:17:44 08/27/20 18 08/30/2018 pap, IG + refle x HR HPV clinician provided ICD10: Commen t Z01.4 19 Not Available [facility] ([facility]) [address] [facility], [place], [address], 08/30/2018 16:17:44 08/27/20 18 08/30/2018 pap, IG + refle x HR HPV performed by: Heron t Kamille Disla Not Available [facility] ([facility]) [address] [place], [address], 08/30/2018 16:17:44 08/27/20 18 08/30/2018 pap, IG + refle x HR HPV . . Not Available [facility] ([facility]) [address] [place], [address], 08/30/2018 16:17:44 08/27/20 18 08/30/2018 pap, IG [...] ts do occur . Not Available [facility] ([facility]) [address] [place], [address], 08/30/2018 16:17:44 08/27/20 18 08/30/2018 pap, IG + refle x HR HPV test methodology: Heron t This liqui d based ThinP rep(R ) pap test was scree ata with the use of an image guide d syste m. Not Available [facility] ([facility]) [address] [place], [address], 08/30/2018 16:17:44 08/27/20 18 08/30/2018 pap, IG + refle x HR HPV . Heron t The HPV DNA refle x crite brooks were not met with this speci men resul t there fore, no HPV testi ng was perfo rmed. Not Available [facility] ([facility]) [address] [place], [address], 08/30/2018 16:17:44 08/27/20 18 08/27/2018 fecal occul t blood , stool Occult Blood negati ve Not Available In-Office Order Internal Use Only DO Not Attach Compendium DO Not Attach Compendium, Do Not Delete/merge, [id number] 08/27/2018 10:39:41 10/11/20 19 10/14/2019 pap, IG + refle x HR HPV diagnosis: Heron infante NEGDANETTE DAVID FOR INTRA EPITH ELIAL LESIO N OR MICHAEL ZAMUDIO . CELLU LAR TINOCO ES ASSOC IATED WITH ATROP HY ARE PRESE NT. Not Available [facility] ([facility]) [address] [facility], [place], [address], 10/14/2019 11:09:26 10/11/20 19 10/14/2019 pap, IG + refle x HR HPV specimen adequacy: Heron infante Satis facto ry for evalu ation . Endoc ervic al compo nent may not be disti nguis hed in cases of atrop hy. Not Available [facility] ([facility]) [address] [facility], [place], [address], 10/14/2019 11:09:26 10/11/20 19 10/14/2019 pap, IG + refle x HR HPV clinician provided ICD10: Heron infante Z01.4 19 Not Available [facility] ([facility]) [address] [place], [address], 10/14/2019 11:09:26 10/11/20 19 10/14/2019 pap, IG + refle x HR HPV performed by: Heron Garza th, Cytot villa infante (ASCP ) Not Available [facility] ([facility]) [address] [place], [address], 10/14/2019 11:09:26 10/11/20 19 10/14/2019 pap, IG + refle x HR HPV . . Not Available [facility] ([facility]) [address] [facility], [place], [address], 10/14/2019 11:09:26 10/11/20 19 10/14/2019 pap, IG [...] ts do occur . Not Available [facility] ([facility]) [address] [facility], [place], [address], 10/14/2019 11:09:26 10/11/20 19 10/14/2019 pap, IG + refle x HR HPV test methodology: Commen t This liqui d based ThinP rep(R ) pap test was scree ata with the use of an image guide d syste m. Not Available [facility] ([facility]) [address] [facility], [place], [address], 10/14/2019 11:09:26 10/11/20 19 10/14/2019 pap, IG + refle x HR HPV . Commen t The HPV DNA refle x crite brooks were not met with this speci men resul t there fore, no HPV testi ng was perfo rmed. Not Available [facility] ([facility]) [address] [facility], [place], [address], 10/14/2019 11:09:26 10/11/20 19 10/11/2019 fecal occul t blood , stool Occult Blood negati ve Not Available In-Office Order Internal Use Only DO Not Attach Compendium DO Not Attach Compendium, Do Not Delete/merge, [id number] 10/11/2019 12:36:42 01/27/20 23 02/02/2023 IGP, RFX APTIM A HPV ASCU diagnosis: Commen t abnormal EPITH ELIAL CELL ABNOR MALIT Y. ATYPI YAEL SQUAM OUS CELLS , CANNO T EXCLU DE HIGH- GRADE SQUAM OUS INTRA EPITH ELIAL LESIO N (ASC- H). CELLU LADAN TINOCO ES ASSOC IATED WITH ATROP HY ARE PRESE NT. Not Available [facility] ([facility]) [address] [place], [address], 02/02/2023 16:11:05 01/27/20 23 02/02/2023 IGP, RFX APTIM A HPV ASCU recommendati on: Commen t abnormal Sugge st follo w up as clini tano appro priat e. Not Available [facility] ([facility]) [address] [place], [address], 02/02/2023 16:11:05 01/27/20 23 02/02/2023 IGP, RFX APTIM A HPV ASCU specimen adequacy: Heron t Satis facto ry for evalu ation . Endoc ervic al and/o r squam ous metap lasti c cells (endo cervi yael compo nent) are prese nt. Not Available [facility] ([facility]) [address] [place], [address], 02/02/2023 16:11:05 01/27/20 23 02/02/2023 IGP, RFX APTIM A HPV ASCU clinician provided ICD10: Heron t Z01.4 19 Not Available [facility] ([facility]) [address] [place], [address], 02/02/2023 16:11:05 01/27/20 23 02/02/2023 IGP, RFX APTIM A HPV ASCU performed by: Heron Garza th, Cytot villa infante (ASCP ) Not Available [facility] ([facility]) [address] [place], [address], 02/02/2023 16:11:05 01/27/20 23 02/02/2023 IGP, RFX APTIM A HPV ASCU electronical ly signed by: Heron Lira MD, Patho logis t Not Available [facility] ([facility]) [address] [facility], [place], [address], 02/02/2023 16:11:05 01/27/20 23 02/02/2023 IGP, RFX APTIM A HPV ASCU . . Not Available [facility] ([facility]) [address] [place], [address], 02/02/2023 16:11:05 01/27/2002/02/2023 IGP, RFX APTIM A HPV ASCU pathologist provided ICD10: Heron infante R87.6 11 Not Available [facility] ([facility]) [address] [place], [address], 02/02/2023 16:11:05 01/27/20 23 02/02/2023 IGP, RFX [...] ts do occur . Not Available [facility] ([facility]) [address] [place], [address], 02/02/2023 16:11:05 01/27/20 23 02/02/2023 IGP, RFX APTIM A HPV ASCU test methodology: Heron infante This liqui d based ThinP rep(R ) pap test was scree ata with the use of an image guide jude systmoose m. Not Available [facility] ([facility]) [address] [place], [address], 02/02/2023 16:11:05 01/27/20 23 02/02/2023 IGP, RFX APTIM A HPV ASCU . Heron t The HPV DNA refle x crite brooks were not met with this speci men resul t there fore, no HPV testi ng was perfo rmed. Not Available [facility] ([facility]) [address] [place], [address], 02/02/2023 16:11:05 05/29/20 23 06/04/2023 IGP, RFX APTIM A HPV ASCU diagnosis: Heron t NEGAT DAVID FOR INTRA EPITH ELIAL EMILIA N OR MICHAEL ZAMUDIO . THIS SPECI MEN WAS RESCR EENED PART OF OUR QUALI TY CONTR OL PROGR AM. Not Available [facility] ([facility]) [address] [facility], [place], [address], 06/04/2023 16:13:10 05/29/20 23 06/04/2023 IGP, RFX APTIM A HPV ASCU specimen adequacy: Heron t Satis facto ry for evalu ation . Endoc ervic al compo nent may not be disti nguis hed in cases of atrop hy. Not Available [facility] ([facility]) [address] [facility], [place], [address], 06/04/2023 16:13:10 05/29/20 23 06/04/2023 IGP, RFX APTIM A HPV ASCU clinician provided ICD10: Heron infante R87.6 10 Not Available [facility] ([facility]) [address] [place], [address], 06/04/2023 16:13:10 05/29/20 23 06/04/2023 IGP, RFX APTIM A HPV ASCU performed by: Heron man, Cytot villa infante Not Available [facility] ([facility]) [address] [place], [address], 06/04/2023 16:13:10 05/29/20 23 06/04/2023 IGP, RFX APTIM A HPV ASCU QC reviewed by: Martin Serna alaor y Cytot villa infante (ASCP ) Not Available [facility] ([facility]) [address] [facility], [place], [address], 06/04/2023 16:13:10 05/29/20 23 06/04/2023 IGP, RFX APTIM A HPV ASCU . . Not Available [facility] ([facility]) [address] [facility], [place], [address], 06/04/2023 16:13:10 05/29/2006/04/2023 IGP, RFX APTIM A [...] ts do occur . Not Available [facility] ([facility]) [address] [facility], [place], [address], 06/04/2023 16:13:10 05/29/2006/04/2023 IGP, RFX APTIM A HPV ASCU test methodology: Heron infante This liqui d based ThinP rep(R ) pap test was scree ata with the use of an image guide jude hummel. Not Available [facility] ([facility]) [address] [place], [address], 06/04/2023 16:13:10 05/29/20 23 06/04/2023 IGP, RFX APTIM A HPV ASCU . Heron infante The HPV DNA refle x crite brooks were not met with this speci men resul t there fore, no HPV testi ng was perfo rmed. Not Available [facility] ([facility]) [address] [place], [address], 06/04/2023 16:13:10 06/10/20 24 06/16/2024 IGP, RFX APTIM A HPV ASCU diagnosis: HERON Infante NEGAT DAVID FOR INTRA EPITH ELIAL LESIO N OR MICHAEL ZAMUDIO . Not Available [facility] ([facility]) [address] [facility], [place], [address], 06/16/2024 11:23:04 06/10/20 24 06/16/2024 IGP, RFX APTIM A HPV ASCU specimen adequacy: HERON Infante Satis facto ry for evalu ation . Endoc ervic al and/o r squam ous metap lasti c cells (endo cervi yael compo nent) are prese nt. Not Available [facility] ([facility]) [address] [facility], [place], [address], 06/16/2024 11:23:04 06/10/20 24 06/16/2024 IGP, RFX APTIM A HPV ASCU clinician provided ICD10: HERON Infante Z01.4 19 Not Available [facility] ([facility]) [address] [place], [address], 06/16/2024 11:23:04 06/10/20 24 06/16/2024 IGP, RFX APTIM A HPV ASCU performed by: HERON [place] infante (ASCP ) Not Available [facility] ([facility]) [address] [place], [address], 06/16/2024 11:23:04 06/10/20 24 06/16/2024 IGP, RFX APTIM A HPV ASCU . . Not Available [facility] ([facility]) [address] [place], [address], 06/16/2024 11:23:04 06/10/20 24 06/16/2024 IGP, RFX [...] ts do occur . Not Available [facility] ([facility]) [address] [facility], [place], [address], 06/16/2024 11:23:04 06/10/20 24 06/16/2024 IGP, RFX APTIM A HPV ASCU test methodology: COMMEN T This liqui d based ThinP rep(R ) pap test was scree ata with the use of an image guide d syste m. Not Available [facility] ([facility]) [address] [facility], [place], [address], 06/16/2024 11:23:04 06/10/20 24 06/16/2024 IGP, RFX APTIM A HPV ASCU . COMMEN T The HPV DNA refle x crite brooks were not met with this speci men resul t there fore, no HPV testi ng was perfo rmed. Not Available [facility] ([facility]) [address] [facility], [place], [address], 06/16/2024 11:23:04 06/06/20 19 06/04/2019 MAMMO , diagn ostic , tomos ynthe sis, bilat eral No observ ation record ed. [email or web address] , [place], [address], 06/06/2019 15:11:12 09/07/20 20 09/05/2020 MAMMO , scree liz, digit al, bilat eral No observ ation record ed. yuriy [place] [address] [place], [place], [address], 09/10/2020 09:20:48 01/19/20 23 01/17/2023 MAMMO , scree liz, digit al, bilat eral No observ ation record ed. ernesto[address] [place], [address], 01/19/2023 09:53:14 03/30/20 24 03/30/2024 MAMMO , scree liz, digit al, bilat eral No observ ation record ed. [facility] [place] [address] [place], [address], 03/31/2024 10:02:35 Result Notes None recorded. Problems Name Problem SNOMED Code Status Onset Date Resolution Date Notes Provider Name and Address Organization Details Recorded Time Genuine stress incontinence Active Jamar De Paz MD Attn: Garima salazar,[address] [place], [address] [place] [address] 5 16:08:06 Problem Notes None recorded. Procedures Surgical History Date Name Laterality Status Provider Name and Address Organization Details Recorded Time 4 Date of Last Pap Smear completed Makeda Higgins RN [facility] 06/16/2024 11:35:11 4 Most Recent Mammogram completed Makeda Higgins RN [facility] 03/31/2024 10:02:46 1 Lung Surgery completed Makeda Higgins RN [facility] 01/15/2015 17:08:27 Imaging Results Imaging Date Name Status LastModified by [facility] Details LastModified Time 06/04/2019 MAMMO, diagnostic, tomosynthesis, bilateral completed [address] [place], [address], 06/06/2019 15:11:12 09/05/2020 MAMMO, screening, digital, bilateral completed yuriy [place] [address], [place], [address], 09/10/2020 09:20:48 01/17/2023 MAMMO, screening, digital, bilateral [facility] [address] [place], [address], 01/19/2023 09:53:14 03/30/2024 MAMMO, screening, digital, bilateral completed nicolás [address] [place], [address], 03/31/2024 10:02:35 Procedure Notes None recorded. Medical [...] Updated DateTime 08/27/2018 157.48 cm 27.5 kg/m2 97335.29 g 106 mm[Hg] 82 mm[Hg] Brianda man MA [facility] 8 10:50:39 Date Recorded Body height Body mass index (BMI) Body weight Systolic blood pressure Diastolic blood pressure Provider Name and Address Organization Details Last Updated DateTime 10/11/2019 157.48 cm 28.3 kg/m2 60459.82 g 114 mm[Hg] 70 mm[Hg] Sandra Horne [facility] 9 12:18:02 Date Recorded Body height Body mass index (BMI) Body weight Systolic blood pressure Diastolic blood pressure Provider Name and Address Organization Details Last Updated DateTime 01/26/2023 157.48 cm 28 kg/m2 63658.06 g 144 mm[Hg] 96 mm[Hg] Tila Bledsoe [facility] 3 14:19:54 Date Recorded Body height Body mass index (BMI) Body weight Systolic blood pressure Diastolic blood pressure Provider Name and Address Organization Details Last Updated DateTime 05/29/2023 157.48 cm 29.6 kg/m2 32330.6 g 145 mm[Hg] 90 mm[Hg] Tila Bledsoe [facility] 3 14:17:01 Date Recorded Body height Body mass index (BMI) Body weight Systolic blood pressure Diastolic blood pressure Provider Name and Address Organization Details Last Updated DateTime 06/10/2024 157.48 cm 30.5 kg/m2 92579.93 g 127 mm[Hg] 86 mm[Hg] NICCI Hurst [place] [facility] 11:14:40 Social History Question Answer Notes LastModified by Organizat ion Details LastModified Time Tobacco Smoking Status Never Smoker NICCI Hurst null, [place] [facility] 01/26/2023 14:21:26 In The 14 [...] [facility] 01/26/2023 14:21:49 Pneumococcal conjugate PCV20, polysaccharide BCW105 conjugate, adjuvant, PF 3 completed Tila Ladi, RMA [place], [place] [facility] 06/10/2024 11:05:49 Influenza, split virus, quadrivalent, PF 3 completed Tila Bledsoe, RMA [place], [place] [facility] 06/10/2024 11:05:49 Past Encounters Encounter ID Performer Location Encounter Start Date Encounter Closed Date Diagnosis/Indication Diagnosis SNOMED-CT Code Diagnosis ICD10 Code Diagnosis Note [id number] [place] [facility] [address] [facility] [address] [place] [address] 01/18/2015 15:17:08 01/18/2015 16:31:33 Gynecologic examination 58592299 Genuine st ress incontinence 52151129 [id number] MD [place] Andrews 14 OB [address] [facility] [address] [facility] [place] [address] 08/27/2018 10:34:09 08/27/2018 17:32:33 Screening for malignant neoplasm of colon 673753064 Z12.11 Gynecologi c examination 77172915 Z01.419 Mixed urin jesse incontinence 336915340 N39.46 [id number] MD [place] Andrews 14 OB [address] [facility] [address] [place] [address] 10/11/2019 12:08:36 10/11/2019 12:41:58 Gynecologic examination 44532835 Z01.419 Menopause present 917924 006 N95.1 Screening for malignant neoplasm of colon 882017069 Z12.11 [id number] MD [place] Andrews 14 OB [address] [facility] [address] [place] [address] 01/26/2023 13:54:54 01/28/2023 10:46:27 Overweight 759228842 E66.3 Gynecologi c examination 78793586 Z01.419 Menopause present 759579 006 N95.1 [id number] MD [place] Andrews 14 OB [address] [facility] [place] [address] 05/29/2023 14:02:07 06/02/2023 15:58:51 Atypical squamous cells of undetermined significance on cervical Papanicolaou smear 762225158 R87.236 [id number] MD [place] Andrews 14 OB [address] [facility] [place] [address] 06/10/2024 10:54:52 2024 06:51:40 Obesity 534682541 E66.8 Gynecologi c examination 17100764 Z01.419 Menopause present 688586 006 N95.1 Health Concerns Section Related Observation LastModified by Organization Detai ls LastModified Time None Recorded Concern Status LastModified by Organization Details LastModified Time None Recorded Advance Directives Directive None Recorded Payers Encounter Date Sequence Insurance Name Policy Number Policy Mandel Covered Member ID Mandel Member ID Guarantor Name 08/27/2018 1 [place] [id number] Sally K Michaels [id number] Sally Michaels 10/11/2019 1 [place] [id number] Sally K Michaels [id number] Sally Michaels 01/26/2023 1 [id number] Sally K Michaels [id number] Sally Michaels 05/29/2023 1 [place] [id number] Sally K Michaels [id number] 33 Sally Michaels 06/10/2024 1 [place] [id number] Sally K Michaels [id number] Sally Michaels Notes Date Note Type [...] Jamar De Paz MD Attn: Accounting,[address] [place], [address], [facility] 08/27/2018 11:12:55 10/11/2019 text/html Annual [...] Jamar De Paz MD Attn: Accounting[address] [place], [address], [facility] 10/11/2019 12:39:08 01/26/2023 text/html Annual [...] Jamar De Paz MD Attn: Accounting[address] [place], [address], [facility] 01/26/2023 14:33:35 05/29/2023 text/html 01/2023 Ascus pap no change in partner in 15 yrs Jamar De Paz MD Attn: Accounting[address] [place], [address], [facility] 05/29/2023 14:27:04 06/10/2024 text/html Annual [...] Jamar De Paz MD Attn: Accounting[address] [place], [address], [place] [facility] 06/10/2024 11:43:40 OBGyn Episode No OBEpisode recorded.
--- OUTSIDE RECORDS SUMMARY | 2024-12-26 09:46 | XMS_ITS ---
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 If you have left the hospital and have any questions, please contact your primary care physician. Reason For Referral No Data Found Plan of Treatment MRI Cervical WO Contrast (03365) 2019 MRI Lumbar WO Contrast (61418) 01/16/20 MRI Cervical WO Contrast (80426) 2019 MRI Lumbar WO Contrast (32422) 01/16/20 MRI Brain WWO Contrast (87116) 02/06/20 23 Encounters Encounter Diagnosis Start Date Code Code Sys tem Cervicalgia 06/14/2024 SNOMED-CT Personal Care Team Section Performer Name Performer Role Active Date Inactive Da te
== END 2024-12-26 09:01 | disposition home or self-care (01) ==
LOC: CHSIMG 09:02
PROVIDERS: PCP Internal Medicine; Visit Provider Internal Medicine
DX: R10.11 Right upper quadrant pain (principal)
CPT/HCPCS: 78227; A9537; J2805